=== PATIENT | female | born 1960 | race Caucasian/White ===

== ENCOUNTER 2016-11-05 17:53 | Emergency (ER) | payer MEDICAID ==
--- NOTE | 2016-11-05 19:06 | ER Document Report ---
ED Medical Screen (RME) - General Chief Complaint: Wound Infection Stated Complaint: LEFT FOOT PAIN TRAVEL OUTSIDE OF THE [place] IN LAST 30 DAYS: No - Related Data Allergies/Adverse Reactions: Penicillins Allergy (Unknown, Verified 11/05/16 18:01) Past Medical History - Social History Chew tobacco use (# tins/day): No Frequency of alcohol use: None Drug Abuse: None - Past Medical History Cardiac Medical History: Reports: Hx Coronary Artery Disease, Hx Heart Attack, Hx Hypercholesterolemia, Hx Hypertension Pulmonary Medical History: Reports: Hx Asthma, Hx COPD Denies: Hx Tuberculosis Neurological Medical History: Reports: Hx Migraine. 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 Denies: Hx Hysterectomy - Immunizations Immunizations up to date: Yes Hx Diphtheria, Pertussis, Tetanus Vaccination: Yes Physical Exam - Vital signs Vitals: Temp Pulse Resp BP Pulse Ox 98.7 F 90 16 171/100 H 97 11/05/16 18:01 11/05/16 18:01 11/05/16 18:01 11/05/16 18:01 11/05/16 18:01 Course - Vital Signs Vital signs: Temp Pulse Resp BP Pulse Ox 98.7 F 90 16 171/100 H 97 11/05/16 18:01 11/05/16 18:01 11/05/16 18:01 11/05/16 18:01 11/05/16 18:01
[2016-11-05] MEDS ORDERED: CEFTRIAXONE INJ 1000 MG VIAL IM ONE (19:08)
--- NOTE | 2016-11-05 19:08 | ER Document Report ---
ED Wound - General Mode of Arrival: Wheelchair Information source: Patient TRAVEL OUTSIDE OF THE [place] IN LAST 30 DAYS: No - HPI Patient complains to provider of: Wound infection Occurred: Other - see HPI note <SVITLANA HUSTON - Last Filed: 11/05/16 19:57> <CORNELL GRIMALDO - Last Filed: 11/08/16 03:06> - General Chief Complaint: Wound Infection Stated Complaint: LEFT FOOT PAIN Notes: Patient is a 56-year-old female. Patient's parents department for an infection in her right middle and fourth toe. Patient states that she noticed her ear infection about a week ago when she saw pus coming out of between her toe. Patient states that she is a diabetic and is insulin-dependent. Patient states that her blood glucose levels have been running 200s. Patient's last A1c was 9 or 10. Patient states that she is also very nauseous and has been vomiting. Patient also has a history of myocardial infarction 3 years ago, COPD, and is allergic to penicillin. (SVITLANA HUSTON) - Related Data Allergies/Adverse Reactions: Penicillins Allergy (Unknown, Verified 11/06/16 20:46) Past Medical History - General Information source: Patient - Social History Smoking Status: Never Smoker Cigarette use (# per day): No Chew tobacco use (# tins/day): No Frequency of alcohol use: None Drug Abuse: None Family History: DM, Hypertension Patient has suicidal ideation: No Patient has homicidal ideation: No - Past Medical History Cardiac Medical History: Reports: Hx Coronary Artery Disease, Hx Heart Attack, Hx Hypercholesterolemia, Hx Hypertension Pulmonary Medical History: Reports: Hx Asthma, Hx COPD Neurological Medical History: Reports: Hx Migraine Endocrine Medical History: Reports: 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 GI Medical History: Reports: Hx Gastroesophageal Reflux Disease Psychiatric Medical History: Reports: Hx Depression Past Surgical History: Reports: Hx Cardiac Catheterization - x7, Hx Section - x3, Hx Coronary Stent - 7 in [place]., Hx Tonsillectomy - Immunizations Immunizations up to date: Yes Hx Diphtheria, Pertussis, Tetanus Vaccination: Yes Hx Pneumococcal Vaccination: 05/01/13 <SVITLANA HUSTON - Last Filed: 11/05/16 19:57> Review of Systems - Review of Systems Constitutional: No symptoms reported EENT: No symptoms reported Cardiovascular: No symptoms reported Respiratory: No symptoms reported Gastrointestinal: No symptoms reported Genitourinary: No symptoms reported Female Genitourinary: No symptoms reported Musculoskeletal: No symptoms reported Skin: See HPI Hematologic/Lymphatic: No symptoms reported Neurological/Psychological: No symptoms reported -: Yes All other systems reviewed and negative <SVITLANA HUSTON - Last Filed: 11/05/16 19:57> Physical Exam - Vital signs Interpretation: Hypertensive - General General appearance: Appears well, Alert In distress: Mild - HEENT Head: Normocephalic, Atraumatic Eyes: Normal Pupils: PERRL Mucous membranes: Moist - Respiratory Respiratory status: No respiratory distress Chest status: Nontender Breath sounds: Normal Chest palpation: Normal - Cardiovascular Rhythm: Regular Heart sounds: Normal auscultation Murmur: No - Abdominal Inspection: Normal Distension: No distension Bowel sounds: Normal Tenderness: Nontender Organomegaly: No organomegaly - Back Back: Normal, Nontender - Extremities General upper extremity: Normal inspection, Normal ROM, Normal strength General lower extremity: Other - Neurological Neuro grossly intact: Yes Cognition: Normal Orientation: AAOx4 Emmanuel Coma Scale Eye Opening: Spontaneous Emmanuel Coma Scale Verbal: Oriented Emmanuel Coma Scale Motor: Obeys Commands [place] Coma Scale Total: 15 Speech: Normal - Psychological Associated symptoms: Normal affect, Normal mood - Skin Skin Temperature: Warm Skin Moisture: Dry <SVITLANA HUSTON - Last Filed: 11/05/16 19:57> <CORNELL GRIMALDO - Last Filed: 11/08/16 03:06> - Vital signs Vitals: Temp Pulse Resp BP Pulse Ox 98.7 F 90 16 171/100 H 97 11/05/16 18:01 11/05/16 18:01 11/05/16 18:01 11/05/16 18:01 11/05/16 18:01 - Extremities Notes: Right third digit to the lower extremity is macerated from getting wet with a bandage on it. Bandage is removed during exam for examination; There is some foul-smelling drainage in between the third and fourth toe; no cellulitis, crepitus, or necrosis. Pulses and sensation are intact, motor intact, no neurological deficits. No necrotizing fasciitis. (SVITLANA HUSTON) Course - Laboratory Result Diagrams: 11/05/16 19:25 11/05/16 19:25 <SVITLANA HUSTON - Last Filed: 11/05/16 19:57> - Laboratory Result Diagrams: 11/05/16 19:25 11/05/16 19:25 <CORNELL GRIMALDO - Last Filed: 11/08/16 03:06> - Re-evaluation Re-evalutation: 11/05/16 19:10 Patient presents to the emergency department with a chief complaint right middle toe infection: On for a week she no she is diabetic she thought starting but didn't see her doctor for it started on any antibiotics she is not seeing her current primary care physician trying to get another one out of most of her medications. Has a history of insulin-dependent diabetes with blood sugars running recently in the 200 range. She stepped out of her NovoLog as of today. 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 Blood pressures little elevated here today such took her blood pressure medication at home but unsure she's been compliant on that on a daily basis says she is out of most of her medications. Also takes pain medication for neuropathy and hasn't had that recently as well. On examination she is afebrile nontoxic lungs heart abdomen is clear no systemic complaints evaluation of the right third digit it's macerated from getting wet with a bandage on it. She's got a little bit of foul-smelling drainage in between the second and third toe no cellulitis crepitus or necrosis. Pulse sensation motor intact no neurological deficits. No necrotizing fasciitis. This time and ahead and start her on antibiotics laboratory evaluation x-ray to exclude osteomyelitis gave her some for pain. 11/05/16 20:24 Patient reassessed pain is better controlled x-ray shows soft tissue swelling but no osteomyelitis. Given 2 doses of IM antibiotics pain control. No cellulitis crepitus or necrosis and do a trial of outpatient antibiotic she's had a recheck in the ER in 12 hours for recheck and reevaluation if removing in the right direction Eduard overdo another dose of IM antibiotics if it's worsening prior to then we may need to admit her with IV antibiotics right now or going to trial recheck in 12 hours with oral antibiotics. Plan is to recheck in 12 hours follow-up with primary care physician on Tuesday. Patient and family instructed on what to return for sooner otherwise recheck in 12 hours in the emergency department. Patient has elevated blood glucose but is not in DKA has been noncompliant on her medications with uncontrolled hemoglobin A1c's. Plan gave her regular insulin here. 11/05/16 20:26 11/05/16 20:27 (CORNELL GRIMALDO) - Vital Signs Vital signs: Temp Pulse Resp BP Pulse Ox 98.9 F 55 L 16 147/84 H 99 11/05/16 20:30 11/05/16 20:30 11/05/16 20:30 11/05/16 20:30 11/05/16 20:30 - Laboratory Laboratory results interpreted by me: 11/05/16 19:25 Sodium 135.3 L Potassium 5.1 H Chloride 96 L BUN 26 H Glucose 406 H* Discharge <SVITLANA HUSTON - Last Filed: 11/05/16 19:57> <CORNELL GRIMALDO - Last Filed: 11/08/16 03:06> - Discharge Clinical Impression: acute diabetic wound infection Condition: Stable Disposition: HOME, SELF-CARE Additional Instructions: Diabetic wound infection You have an infection of your skin and underlying soft tissues called cellulitis. This is due to bacteria, which can enter through any break in the skin, or even through an irritated hair follicle. Untreated, cellulitis will usually worsen. Antibiotics are required. Usually, warm packs or warm soaks, and elevation of the infected area are recommended. You should start getting better within 24 to 36 hours. Most infections respond quickly to the right medication. Follow-up care is important, however, to check for abscess (boil) formation, unsuspected foreign body, or resistant infection. If you develop fever, chills, or if the area of infection is becoming rapidly more swollen or painful, call the doctor at once. Hyperglycemia (High Blood Sugar) You have an abnormally high blood sugar. Not all high blood sugar requires long-term treatment. High blood sugar can be due to medications, , or the stress of illness. (These cases are "borderline diabetes.") If the doctor feels your high blood sugar might resolve with time, you may not require treatment now. Recheck in the emergency department in 12 hours for reassessment reevaluation return sooner for increasing worsening or new symptoms Forms: Elevated Blood Pressure Scribe Attestation: 11/05/16 20:28 I personally performed the services described in the documentation reviewed the documentation recorded by the scribe in my presence and it accurately incompletely records my words and actions (CORNELL GRIMALDO) Scribe Documentation - Scribe Written by Scribasif:: Svitlana Huston 11/05/16 20:05 acting as scribe for :: Sean <SVITLANA HUSOTN - Last Filed: 11/05/16 19:57>
[2016-11-05] MEDS ORDERED: CLINDAMYCIN 900 MG/D5W RTU 50 ML IV ONE (19:09)
[2016-11-05] MEDS ORDERED: HYDROCODONE/ACETAMINOPHEN 5-325 MG TABLET PO ONE (19:09)
[2016-11-05 19:39] LABS: ABSOLUTE BASOPHILS # (AUTO) 0.1 10^3/uL (0.0-0.2); ABSOLUTE EOSINOPHILS # (AUTO) 0.1 10^3/uL (0.0-0.6); ABSOLUTE LYMPHOCYTES (AUTO) 2.5 10^3/uL (0.5-4.7); ABSOLUTE MONOCYTES (AUTO) 0.4 10^3/uL (0.1-1.4); ABSOLUTE NEUT (AUTO) 5.1 10^3/uL (1.7-8.2); BASOPHILS % (AUTO) 0.9 % (0-2); EOSINOPHILS % (AUTO) 1.2 % (0-6); HEMATOCRIT 37.2 % (36.0-47.0); HEMOGLOBIN 12.8 g/dL (12.0-15.5); HGB HCT DIFFERENCE 1.2; LYMPHOCYTES % (AUTO) 30.6 % (13-45); MEAN CORPUSCULAR HEMOGLOBIN 28.6 pg (27.0-33.4); MEAN CORPUSCULAR HGB CONC 34.4 g/dL (32.0-36.0); MEAN CORPUSCULAR VOLUME 83 fl (80-97); MONOCYTES % (AUTO) 4.4 % (3-13); RED BLOOD COUNT 4.46 10^6/uL (3.72-5.28); RED CELL DISTRIBUTION WIDTH 12.9 % (11.5-14.0); SEGMENTED NEUTROPHILS % (AUTO) 62.9 % (42-78); WHITE BLOOD COUNT 8.1 10^3/uL (4.0-10.5)
[2016-11-05] MEDS ORDERED: LIDOCAINE 1% INJ-PF (10 MG/ML) 30 ML SDV ONE (20:13)
[2016-11-05 20:16] LABS: ANION GAP 12 (5-19); BLOOD UREA NITROGEN 26 mg/dL (7-20); CARBON DIOXIDE 27 mmol/L (22-30); CHLORIDE 96 mmol/L (98-107); CREATININE RESULT 0.96 mg/dL (0.52-1.25); POTASSIUM 5.1 mmol/L (3.6-5.0); SODIUM 135.3 mmol/L (137-145)
[2016-11-05] MEDS ORDERED: CLINDAMYCIN PHOSPHATE INJ 300 MG/2 ML SDV IM ONE (20:23)
[2016-11-05 20:26] LABS: GLUCOSE 406 mg/dL (75-110)
[2016-11-05] MEDS ORDERED: HYDROCODONE/ACETAMINOPHEN 5-325 MG 6 TAB/DSPK PO PRN (20:29)
[2016-11-05] MEDS ORDERED: INSULIN REG, HUMAN 100 UNIT/ML 3 ML VIAL (PYX) SUBCUT ONE (20:29)
[2016-11-05 21:06] VITALS: BP 147/84
== END 2016-11-05 20:33 | disposition home or self-care (01) ==
LOC: ER 17:53
DX: E11.628 Type 2 diabetes mellitus with other skin complications (principal); L08.9 Local infection of the skin and subcutaneous tissue, unspecified; E11.40 Type 2 diabetes mellitus with diabetic neuropathy, unspecified; Z79.4 Long term (current) use of insulin; R11.2 Nausea with vomiting, unspecified; I25.10 Atherosclerotic heart disease of native coronary artery without angina pectoris; I25.2 Old myocardial infarction; I10 Essential (primary) hypertension; Z91.14 Patient's other noncompliance with medication regimen; J44.9 Chronic obstructive pulmonary disease, unspecified; Z88.0 Allergy status to penicillin; Z98.61 Coronary angioplasty status; Z79.899 Other long term (current) drug therapy
CPT/HCPCS: 99283; 96372; 36415; 87040; 85025; 80048; 73630; J0696

== ENCOUNTER 2016-11-06 20:09 | Inpatient (IN) | payer MEDICAID ==
[2016-11-06] MEDS ORDERED: VANCOMYCIN HCL INJ 1000 MG VIAL IV ONE (22:27)
[2016-11-06] MEDS ORDERED: FENTANYL CITRATE INJ/PF 100 MCG/2 ML AMPUL IV ONE (22:34)
[2016-11-06] MEDS ORDERED: CIPROFLOXACIN 400 MG/D5W RTU 400 MG/200 ML RTUPB IV ONE (23:00)
[2016-11-06] MEDS ORDERED: CIPROFLOXACIN 400 MG/D5W RTU 200 ML IV SCH (23:00)
[2016-11-07] MEDS ORDERED: INSULIN REG, HUMAN 100 UNIT/ML 3 ML VIAL (PYX) SUBCUT ONE ×2 (00:12→00:13)
[2016-11-07 01:53] LABS: ABSOLUTE EOSINOPHILS # (AUTO) 0.2 10^3/uL (0.0-0.6); ABSOLUTE LYMPHOCYTES (AUTO) 3.9 10^3/uL (0.5-4.7); ABSOLUTE MONOCYTES (AUTO) 0.6 10^3/uL (0.1-1.4); ABSOLUTE NEUT (AUTO) 4.8 10^3/uL (1.7-8.2); BASOPHILS % (AUTO) 0.5 % (0-2); EOSINOPHILS % (AUTO) 1.9 % (0-6); HEMATOCRIT 37.2 % (36.0-47.0); HEMOGLOBIN 12.6 g/dL (12.0-15.5); HGB HCT DIFFERENCE 0.6; LYMPHOCYTES % (AUTO) 40.9 % (13-45); MEAN CORPUSCULAR HEMOGLOBIN 28.3 pg (27.0-33.4); MEAN CORPUSCULAR VOLUME 83 fl (80-97); MONOCYTES % (AUTO) 6.1 % (3-13); RED BLOOD COUNT 4.47 10^6/uL (3.72-5.28); SEGMENTED NEUTROPHILS % (AUTO) 50.6 % (42-78); WHITE BLOOD COUNT 9.4 10^3/uL (4.0-10.5)
[2016-11-07 02:09] LABS: ANION GAP 10 (5-19); BLOOD UREA NITROGEN 27 mg/dL (7-20); CALCIUM 9.5 mg/dL (8.4-10.2); CARBON DIOXIDE 29 mmol/L (22-30); CHLORIDE 101 mmol/L (98-107); CREATININE RESULT 0.77 mg/dL (0.52-1.25); GLUCOSE 164 mg/dL (75-110); POTASSIUM 4.4 mmol/L (3.6-5.0); SODIUM 140.2 mmol/L (137-145)
[2016-11-07] MEDS ORDERED: ACETAMINOPHEN 325 MG TABLET PO PRN (02:45)
[2016-11-07] MEDS ORDERED: VANCOMYCIN HCL 1,000 MG in DEXTROSE 5%-WATER 250 ML IV ONE (02:45)
[2016-11-07] MEDS ORDERED: VANCOMYCIN HCL 0 MG in DEXTROSE 5%-WATER 250 ML IV NR (02:45)
[2016-11-07] MEDS ORDERED: VANCOMYCIN HCL INJ 1000 MG VIAL IV ONE (02:45)
[2016-11-07] MEDS ORDERED: GLUCAGON,HUMAN RECOMB 1 MG INJ IM PRN (02:45)
[2016-11-07] MEDS ORDERED: DEXTROSE 40% GEL 15 GM TUBE PO PRN ×2 (02:45)
[2016-11-07] MEDS ORDERED: FENTANYL CITRATE INJ/PF 100 MCG/2 ML AMPUL IV ONE (02:45)
[2016-11-07] MEDS ORDERED: MAGNESIUM HYDROXIDE SUSP 30 ML UDCUP PO PRN (02:45)
[2016-11-07] MEDS ORDERED: IPRATROPIUM/ALBUTEROL 0.5-2.5 MG/3 ML AMPUL NEB PRN (02:45)
[2016-11-07] MEDS ORDERED: ONDANSETRON HCL INJ/PF 4 MG/2 ML SDV IV PRN (02:45)
[2016-11-07] MEDS ORDERED: MAG HYDROX/AL HYDROX/SIMETH SUSP 30 ML UDCUP PO PRN (02:45)
[2016-11-07] MEDS ORDERED: DEXTROSE 50%-WATER 25 GM/50 ML DISP.SYRIN IV PRN ×2 (02:45)
--- NOTE | 2016-11-07 02:53 | ER Document Report ---
ED General - General Chief Complaint: Wound Recheck Stated Complaint: WOUND RECHECK Notes: Patient is a 56-year-old female who presents with complaint of pain and redness infection the middle toe her left foot. She was seen here yesterday. She is placed on clindamycin. She was encouraged come back within 12-24 hours reevaluation. Patient is coming back now. She says that the swelling is now spread to her foot and toes got worse. She is diabetic. She does admit to not take your insulin tonight. She says that she is mostly compliant with her medications. She says she is between physicians at this time. TRAVEL OUTSIDE OF THE [place] IN LAST 30 DAYS: No - Related Data Allergies/Adverse Reactions: Penicillins Allergy (Unknown, Verified 11/06/16 20:46) Past Medical History - Social History Smoking Status: Never Smoker Chew tobacco use (# tins/day): No Frequency of alcohol use: None Drug Abuse: None Family History: DM, Hypertension Patient has suicidal ideation: No Patient has homicidal ideation: No - Past Medical History Cardiac Medical History: Reports: Hx Coronary Artery Disease, Hx Heart Attack, Hx Hypercholesterolemia, Hx Hypertension Pulmonary Medical History: Reports: Hx Asthma, Hx COPD Denies: Hx Tuberculosis Neurological Medical History: Reports: Hx Migraine. 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 Denies: Hx Hysterectomy - Immunizations Immunizations up to date: Yes Hx Diphtheria, Pertussis, Tetanus Vaccination: Yes Hx Pneumococcal Vaccination: 05/01/13 Review of Systems - Review of Systems Notes: My Normal Review Basic REVIEW OF SYSTEMS: CONSTITUTIONAL : Denies fever, chills, or sweats. Denies recent illness. RESPIRATORY: Denies cough, cold, or chest congestion. Denies shortness of breath, difficulty breathing, or wheezing. GASTROINTESTINAL: Denies abdominal pain. Denies nausea, vomiting, or diarrhea. Denies constipation. Last BM: : MUSCULOSKELETAL: Pain in left foot and toe. SKIN: Erythema and swelling to left third toe. NEUROLOGICAL: Denies altered mental status or loss of consciousness. Denies headache. Denies weakness or paralysis or loss of use of either side. Denies problems with gait or speech. Denies sensory or motor loss. ALL OTHER SYSTEMS REVIEWED AND NEGATIVE. Physical Exam - Vital signs Vitals: Temp Pulse Resp BP Pulse Ox 98.0 F 85 20 167/100 H 97 11/06/16 20:46 11/06/16 20:46 11/06/16 20:46 11/06/16 20:46 11/06/16 20:46 - Notes Notes: General Appearance: Well nourished, alert, cooperative, no acute distress, no obvious discomfort. Vitals: reviewed, See vital signs table. Eyes: PERRL, EOMI, Conjuctiva clear Mouth: No decreasd moisture Lungs: No wheezing, No rales, No rhonci, No accessory muscle use, good air exchange bilaterally. Heart: Normal rate, Regular rythm, No murmur, no rub Extremities: strength 5/5 in all extremities, good pulses in all extremities, patient has erythema and ulceration to the left third toe with necrosis and some foul-smelling purulent drainage. Patient has swelling going into the distal foot. Some erythema starting to extend into the distal foot. No edema. Skin: warm, dry, appropriate color, no rash Neuro: speech clear, oriented x 3, normal affect, responds appropriately to questions. Course - Vital Signs Vital signs: Temp Pulse Resp BP Pulse Ox 98.0 F 85 20 167/100 H 97 11/06/16 20:46 11/06/16 20:46 11/06/16 20:46 11/06/16 20:46 11/06/16 20:46 - Laboratory Result Diagrams: 11/07/16 01:35 11/07/16 01:35 Laboratory results interpreted by me: 11/06/16 11/07/16 11/07/16 23:43 01:35 01:35 BUN 27 H Glucose 164 H POC Glucose 197 H Hemoglobin A1c % 12.6 H - Transfer of Care Notes: 11/07/16 04:34 Patient has worsening infection of the toe now spreading into the foot. She is diabetic. I have placed on Cipro and vancomycin. I spoke with the hospitalist who agrees to the patient for further treatment and management of her infection. Dictation of this chart was performed using voice recognition software; therefore, there may be some unintended grammatical errors. Discharge - Discharge Clinical Impression: Diabetic foot infection Condition: Good Disposition: ADMITTED INPATIENT Admitting Provider: Hospitalist Unit Admitted: Medical Floor
--- NOTE | 2016-11-07 04:54 | PDOC H&P ---
History of Present Illness Admission Date/PCP: 11/07/16 03:04 Patient complains of: Right Third toe infection History of Present Illness: CAITLYN DUARTE is a 56 year old female with a past medical history of hypertension, coronary artery disease with stents and diabetes who is had approximately 1 week of erythema swelling and malodorous risk discharge from her right third toe for which she initially applied a topical core microarchitect preparation resulting in some improvement then following up with the emergency room yesterday and was started on clindamycin without significant improvement she returns with malodorous drainage and necrotic discharge from the base of the right third toe and distal foot erythema and edema. In the emergency room she started on vancomycin and ciprofloxacin and referred to the hospitalist for admission. Patient denies previous episode she admits compliance with diabetic regiment. She denies fever chills palpitations or shortness of breath Past Medical History Cardiac Medical History: Reports: Coronary Artery Disease, Myocardial Infarction , Hyperlipidema, Hypertension Pulmonary Medical History: Reports: Asthma, Chronic Obstructive Pulmonary Disease (COPD) Denies: Tuberculosis Neurological Medical History: Reports: Migraine Denies: Seizures Endocrine Medical History: Reports: Diabetes Mellitus Type 1, Diabetes Mellitus Type 2 - Insulin dependant GI Medical History: Reports: Gastroesophageal Reflux Disease Psychiatric Medical History: Reports: Depression Past Surgical History Past Surgical History: Reports: Cardiac Catheterization - x7, Section - x3, Coronary Stent - 7 in [place]., Tonsillectomy Denies: Hysterectomy Social History Information Source: Patient Lives with: Family Smoking Status: Never Smoker Frequency of Alcohol Use: None Hx Recreational Drug Use: No Hx Prescription Drug Abuse: No - Advance Directive Resuscitation Status: Full Code Family History Family History: DM, Hypertension Parental Family History Reviewed: Yes Children Family History Reviewed: Yes Sibling(s) Family History Reviewed.: Yes Medication/Allergy Home Medications: Atorvastatin Calcium [Lipitor 40 mg Tablet] 40 mg PO QHS 04/29/13 Duloxetine HCl [Cymbalta 30 mg Capsule.dr] 30 mg PO DAILY 04/29/13 Gabapentin [Neurontin 300 Mg Capsule] 600 mg PO TID 04/29/13 Insulin Aspart Protam & Aspart [Novolog Mix 70-30 Vial] 6 unit SQ ACLUNCH Insulin Glargine,Hum.rec.anlog [Lantus Insulin 100 Unit/mL] 45 unit SUBCUT QAM 04/29/13 Metformin HCl [Glucophage 500 mg Tablet] 1,000 mg PO BID 04/29/13 Omeprazole [Prilosec 40 mg Capsule] 20 mg PO DAILY 04/29/13 Aspirin [Aspirin 81 mg Chewable Tablet] 81 mg PO DAILY #0 tab.chew 05/01/13 Clopidogrel Bisulfate [Plavix] 75 mg PO DAILY 06/26/14 Lisinopril 5 mg PO DAILY 06/26/14 Lorazepam 0.25 mg PO PRN PRN 06/26/14 Metoprolol Succinate [Toprol Xl] 12.5 mg PO DAILY 06/26/14 [place]-3 Fatty Acids [[place]-3] 1,000 mg PO DAILY 06/26/14 Ciprofloxacin HCl [Cipro 500 mg Tablet] 500 mg PO BID #10 tablet 05/05/15 Ciprofloxacin HCl [Cipro 500 mg Tablet] 500 mg PO BID #14 tablet 08/30/15 Doxycycline Hyclate 100 mg PO BID #14 capsule 08/30/15 Hydrocodone/Acetaminophen [[place] 5-325 mg Tablet] 1 tab PO Q4 PRN #16 tablet Ofloxacin [Floxin 0.3% Otic Drops 5 ml] 1 drop OT ASDIR PRN #1 bottle 10/31/15 Ondansetron [Zofran Odt 4 mg Tablet] 1 tab PO Q6HP PRN #15 tab.rapdis 01/02/16 Clindamycin HCl 300 mg PO BID #14 capsule 11/05/16 Allergies/Adverse Reactions: Penicillins Allergy (Unknown, Verified 11/06/16 20:46) Review of Systems Constitutional: ABSENT: chills, fever(s), headache(s), weight gain, weight loss Eyes: ABSENT: visual disturbances Ears: ABSENT: hearing changes Cardiovascular: ABSENT: chest pain, dyspnea on exertion, edema, orthropnea, palpitations Respiratory: ABSENT: cough, hemoptysis Gastrointestinal: ABSENT: abdominal pain, constipation, diarrhea, hematemesis, hematochezia, nausea, vomiting Genitourinary: ABSENT: dysuria, hematuria Musculoskeletal: ABSENT: joint swelling Integumentary: ABSENT: rash, wounds Neurological: ABSENT: abnormal gait, abnormal speech, confusion, dizziness, focal weakness, syncope Psychiatric: ABSENT: anxiety, depression, homidical ideation, suicidal ideation Endocrine: ABSENT: cold intolerance, heat intolerance, polydipsia, polyuria Hematologic/Lymphatic: ABSENT: easy bleeding, easy bruising Physical Exam Vital Signs: Temp Pulse Resp BP Pulse Ox 98.0 F 85 20 167/100 H 97 11/06/16 20:46 11/06/16 20:46 11/06/16 20:46 11/06/16 20:46 11/06/16 20:46 General appearance: PRESENT: no acute distress, well-developed, well-nourished Head exam: PRESENT: atraumatic, normocephalic Eye exam: PRESENT: conjunctiva pink, EOMI, PERRLA. ABSENT: scleral icterus Ear exam: PRESENT: normal external ear exam Mouth exam: PRESENT: moist, tongue midline Neck exam: ABSENT: carotid bruit, JVD, lymphadenopathy, thyromegaly Respiratory exam: PRESENT: clear to auscultation lito. ABSENT: rales, rhonchi, wheezes Cardiovascular exam: PRESENT: RRR. ABSENT: diastolic murmur, rubs, systolic murmur Pulses: PRESENT: normal dorsalis pedis pul Vascular exam: PRESENT: normal capillary refill GI/Abdominal exam: PRESENT: normal bowel sounds, soft. ABSENT: distended, guarding, mass, organolmegaly, rebound, tenderness Rectal exam: PRESENT: deferred Extremities exam: PRESENT: full ROM, joint swelling, pedal edema, tenderness, + 1 edema, other - Right distal foot edema and erythema with necrotic malodorous discharge from third toe. ABSENT: calf tenderness, clubbing Neurological exam: PRESENT: alert, awake, oriented to person, oriented to place , oriented to time, oriented to situation, CN II-XII grossly intact. ABSENT: motor sensory deficit Psychiatric exam: PRESENT: appropriate affect, normal mood. ABSENT: homicidal ideation, suicidal ideation Skin exam: PRESENT: dry, intact, warm. ABSENT: cyanosis, rash Assessment & Plan - Diagnosis (1) Diabetic foot infection Is this a current diagnosis for this admission?: YesPlan: Empiric antibiotics for coverage of MRSA and Pseudomonas with IV vancomycin and cefepime following up blood cultures and CBC will obtain surgical consult for viability (2) Diabetes 1.5, managed as type 1 Is this a current diagnosis for this admission?: YesPlan: Continue long-acting insulin and Humalog with meals, obtain an A1c consider education - Time Time Spent: 30 to 50 Minutes
[2016-11-07] MEDS: HEPARIN SOD (PORCINE) 5,000 UNIT/ML 1 ML SYRINGE SUBCUT SCH ×3 (06:10→21:14)
[2016-11-07] MEDS ORDERED: CEFEPIME 1 GM/D5W RTU 1 GM/50 ML RTUPB IV ONE (06:13)
[2016-11-07] MEDS: CEFEPIME 1 GM/D5W RTU 1 GM/50 ML RTUPB IV SCH ×2 (09:36→18:11)
[2016-11-07] MEDS: INSULIN GLARGINE,HUM.REC.ANLOG 300 UNIT/3 ML INSULN.PEN SUBCUT SCH (09:37)
[2016-11-07] MEDS: METFORMIN HCL 500 MG TABLET PO SCH ×2 (09:40→16:41)
[2016-11-07] MEDS: LANSOPRAZOLE 15 MG TAB.RAP.DR PO SCH (09:40)
[2016-11-07] MEDS ORDERED: LISINOPRIL 5 MG TABLET PO SCH (10:00)
[2016-11-07] MEDS ORDERED: METOPROLOL SUCCINATE 25 MG TAB.SR.24H PO SCH (10:00)
[2016-11-07] MEDS ORDERED: OMEPRAZOLE 20 MG PO SCH (10:00)
[2016-11-07] MEDS ORDERED: CLOPIDOGREL BISULFATE 75 MG TABLET PO SCH (10:00)
[2016-11-07] MEDS ORDERED: CIPROFLOXACIN 400 MG/D5W RTU 400 MG/200 ML RTUPB IV SCH (10:00)
[2016-11-07] MEDS ORDERED: LORAZEPAM 0.5 MG TABLET PO PRN ×2 (10:56→11:03)
[2016-11-07] MEDS ORDERED: ONDANSETRON 4 MG TAB.RAPDIS PO PRN (10:56)
[2016-11-07] MEDS ORDERED: [UNRECOGNIZED DRUG - OTHER] SQ SCH (11:00)
[2016-11-07] MEDS ORDERED: INSULIN ASPART PROTAMINE SQ SCH (11:00)
[2016-11-07] MEDS: DULOXETINE HCL 30 MG CAPSULE.DR PO SCH (11:04)
[2016-11-07] MEDS: GABAPENTIN 300 MG CAPSULE PO SCH ×3 (11:04→17:35)
[2016-11-07] MEDS: ASPIRIN 81 MG TABLET, CHEWABLE PO SCH (11:04)
[2016-11-07] MEDS: DOCUSATE SODIUM 100 MG CAPSULE PO SCH ×2 (11:04→17:35)
--- NOTE | 2016-11-07 13:18 | PDOC PROGRESS REPORT ---
Subjective Progress Note for:: 11/07/16 Subjective:: Patient seen on morning rounds. She is resting in bed comfortably. She is complaining of some pain in the right third toe. There is darkened area on the lateral side of the toe with foul smelling discharge. Patient states surgeon was in to see her earlier. She states she is adamantly not going to have her toe removed. We discussed risks of osteomyelitis and gangrene. She denies any shortness of breath, chest pain or dyspnea. She denies nausea, abdominal pain or diarrhea. Rest of review of systems are negative Physical Exam Vital Signs: Temp Pulse Resp BP Pulse Ox 98.6 F 77 16 117/76 97 11/07/16 08:13 11/07/16 08:13 11/07/16 08:13 11/07/16 08:13 11/06/16 20:46 General appearance: PRESENT: no acute distress, obese, well-developed, well- nourished Head exam: PRESENT: atraumatic, normocephalic Eye exam: PRESENT: conjunctiva pink, EOMI, PERRLA. ABSENT: scleral icterus Ear exam: PRESENT: normal external ear exam Mouth exam: PRESENT: moist, tongue midline Neck exam: ABSENT: carotid bruit, JVD, lymphadenopathy, thyromegaly Respiratory exam: PRESENT: clear to auscultation lito. ABSENT: rales, rhonchi, wheezes Cardiovascular exam: PRESENT: RRR. ABSENT: diastolic murmur, rubs, systolic murmur Pulses: PRESENT: normal carotid pulses, normal radial pulses Vascular exam: PRESENT: normal capillary refill GI/Abdominal exam: PRESENT: normal bowel sounds, soft. ABSENT: distended, guarding, mass, organolmegaly, rebound, tenderness Rectal exam: PRESENT: deferred Extremities exam: PRESENT: full ROM. ABSENT: calf tenderness, clubbing, pedal edema Neurological exam: PRESENT: alert, awake, oriented to person, oriented to place , oriented to time, oriented to situation, CN II-XII grossly intact. ABSENT: motor sensory deficit Psychiatric exam: PRESENT: appropriate affect, normal mood. ABSENT: homicidal ideation, suicidal ideation Skin exam: PRESENT: dry, intact, warm, other - right third toe erythemic, with darkened eschar on lateral toe with foul smelling drainage. ABSENT: cyanosis, rash Assessment & Plan - Diagnosis (1) Diabetic foot infection Is this a current diagnosis for this admission?: YesPlan: Patient on IV broad-spectrum antibiotics. Blood cultures and wound cultures are pending. Surgical service following for wound management. Patient is adamant she did not have her toe removed. (2) Diabetes 1.5, managed as type 1 Is this a current diagnosis for this admission?: YesPlan: Patient's HbA1c is 12.5 today. Discussed need for improved management of her diabetes with patient. She states she is compliant most of the time with her insulin. She is improving her diet as well. She is agreeable to follow-up with endocrinology as an outpatient. (3) Peripheral vascular disease Is this a current diagnosis for this admission?: YesPlan: Obtain ABIs tomorrow to assess arterial flow to the foot. (4) Coronary artery disease Qualifiers: Coronary Disease-Associated Artery/Lesion type: [place] artery Is this a current diagnosis for this admission?: YesPlan: Continue medications (5) Dyslipidemia Is this a current diagnosis for this admission?: YesPlan: Continue statin (6) Noncompliance Is this a current diagnosis for this admission?: YesPlan: Discuss need for improved management of her diabetes mellitus type II - Time Time Spent with patient: 25-34 minutes Critical Time spent with patient: 15-24 minutes Medications reviewed and adjusted accordingly: Yes Anticipated discharge: Home
[2016-11-07] MEDS ORDERED: SILVER SULFADIAZINE 1% CREAM 25 GM TP PRN (13:43)
[2016-11-07] MEDS: VANCOMYCIN HCL 1,000 MG in DEXTROSE 5%-WATER 250 ML IV SCH (15:53)
--- NOTE | 2016-11-07 16:19 | CONSULTATION REPORT E ---
Consultation Report NAME: CAITLYN DUARTE : 1960 AGE: 56Y DATE: 208 A TO: MECHE NAIDU M.D. FROM: JOYCE MOJICA M.D. Requesting Physician REASON FOR CONSULTATION: Patient with infected right 3rd toe with drainage. HISTORY OF PRESENT ILLNESS: This is a 56-year-old female who claimed she dropped a knife on her right 3rd toe about a week ago. This gradually got red and painful, and now with malodorous drainage. She was admitted to the emergency room early this morning. PAST HISTORY: Coronary artery disease, myocardial infarction, hyperlipidemia, hypertension. Pulmonary history: History of asthma, COPD, and history of migraines. Endocrine history: History of diabetes mellitus type 1 and diabetes mellitus type 2 insulin-dependent. GI: Reports gastroesophageal reflux disease. Psychiatric medical history: Reports depression. PAST SURGICAL HISTORY: 1. Cardiac catheterization x7 with coronary stent placement, about 7 of them, 7 years ago after her myocardial infarction. 2. Tonsillectomy. SOCIAL HISTORY: She never smoked. Never used alcohol. No recreational drug use. FAMILY HISTORY: Positive for diabetes. Her father had diabetes and had a wound in his left foot which the patient helped treat with "silver" medication and this resolved the infection, and her father is a diabetic. MEDICATION HISTORY: 1. Insulin. 2. Lisinopril. 3. Metoprolol. 4. Atorvastatin. 5. Neurontin. 6. Also takes *------*. 7. She apparently was placed on Cipro and doxycycline by primary physician. ALLERGIES: PENICILLIN. REVIEW OF SYSTEMS: GENERAL: Denies any chills, fever, headache. EYES: Denies visual disturbance. EARS: No hearing changes. CARDIAC: No chest pain, no dyspnea on exertion, no orthopnea, no palpitations. RESPIRATORY: No cough or hemoptysis. GASTROINTESTINAL: No abdominal pains, constipation, diarrhea, or hematochezia. GENITOURINARY: No dysuria or hematuria. MUSCULOSKELETAL: No joint swelling. NEUROLOGICAL: No speech *------*. No focal weakness. PSYCHIATRIC: No anxiety or depression. ENDOCRINE: No cold intolerance. HEMATOLOGIC/LYMPHATIC: No easy bleeding or easy bruising. PHYSICAL EXAM: GENERAL: This is a 56-year-old female, alert and oriented, complaining of pains in the right foot. General appearance: Well-developed, well-nourished, complaining of leg neck pain, see H and P. VITAL SIGNS: Temperature 98 degrees, pulse rate 85, respiratory rate 20 and blood pressure 167/100, pulse ox 97% on room air. HEENT: Atraumatic/normocephalic. Eye exam: PERRLA. Conjunctivae pink. Ear exam: Normal external ear exam. Mouth exam: Moist. Tongue midline. NECK: No carotid bruit, no thyromegaly. RESPIRATORY: Clear to auscultation bilaterally. VASCULAR EXAM: Pulses palpable along the right popliteal, right ankle dorsalis pedis, and posterior tibial arteries. Right 3rd toe is erythematous with good capillary refill. There is foul-smelling discharge along the base of the right 3rd toe. There appear to be ischemic changes on the plantar aspect of the 1st metatarsal, right 3rd toe. No definite abscess around the area, but the plantar side is very tender when you touch it. LABORATORY DATA: The Blood sugar is slightly elevated. IMPRESSION: 1. Infected right 3rd toe with tissue loss. 2. Insulin-dependent diabetes mellitus. PLANS: Initially, I spoke with the patient about amputation of the right 3rd toe, but she refused at this time. I explained to her the risks of not having the amputation of the toe, and one of them is possibility of endangering losing the whole foot. She understands. At any rate, we would start her on Silvadene dressing which I agree, she did request, based on the treatment of her father's foot. Will keep the leg elevated and continue with IV antibiotics. DICTATING PHYSICIAN: MECHE NAIDU M.D. [id number] PHY#: [id number] ID: [id number] JOB#: [id number] ACCT: [id number] cc:MECHE NAIDU M.D. >
[2016-11-07] MEDS: TICAGRELOR 90 MG TABLET PO SCH (17:35)
[2016-11-07] MEDS: INSULIN LISPRO 100 UNIT/ML 3 ML VIAL SUBCUT PRN ×2 (18:11→23:48)
[2016-11-07] MEDS: ATORVASTATIN CALCIUM 40 MG TABLET PO SCH (21:14)
[2016-11-08] MEDS: VANCOMYCIN HCL 1,000 MG in DEXTROSE 5%-WATER 250 ML IV SCH ×2 (03:50→17:03)
[2016-11-08] MEDS: CEFEPIME 1 GM/D5W RTU 1 GM/50 ML RTUPB IV SCH (05:51)
[2016-11-08] MEDS: HEPARIN SOD (PORCINE) 5,000 UNIT/ML 1 ML SYRINGE SUBCUT SCH ×3 (05:51→22:12)
[2016-11-08 06:51] LABS: ABSOLUTE EOSINOPHILS # (AUTO) 0.1 10^3/uL (0.0-0.6); ABSOLUTE LYMPHOCYTES (AUTO) 3.5 10^3/uL (0.5-4.7); ABSOLUTE MONOCYTES (AUTO) 0.5 10^3/uL (0.1-1.4); ABSOLUTE NEUT (AUTO) 3.7 10^3/uL (1.7-8.2); BASOPHILS % (AUTO) 0.6 % (0-2); EOSINOPHILS % (AUTO) 1.5 % (0-6); HEMATOCRIT 34.1 % (36.0-47.0); HEMOGLOBIN 11.9 g/dL (12.0-15.5); HGB HCT DIFFERENCE 1.6; LYMPHOCYTES % (AUTO) 43.9 % (13-45); MEAN CORPUSCULAR HEMOGLOBIN 28.9 pg (27.0-33.4); MEAN CORPUSCULAR HGB CONC 34.8 g/dL (32.0-36.0); MEAN CORPUSCULAR VOLUME 83 fl (80-97); MONOCYTES % (AUTO) 6.5 % (3-13); RED CELL DISTRIBUTION WIDTH 12.8 % (11.5-14.0); SEGMENTED NEUTROPHILS % (AUTO) 47.5 % (42-78); WHITE BLOOD COUNT 7.9 10^3/uL (4.0-10.5)
[2016-11-08 07:11] LABS: ANION GAP 9 (5-19); BLOOD UREA NITROGEN 36 mg/dL (7-20); CALCIUM 9.1 mg/dL (8.4-10.2); CARBON DIOXIDE 26 mmol/L (22-30); CHLORIDE 99 mmol/L (98-107); CREATININE RESULT 0.99 mg/dL (0.52-1.25); GLUCOSE 364 mg/dL (75-110); POTASSIUM 4.5 mmol/L (3.6-5.0); SODIUM 133.8 mmol/L (137-145)
[2016-11-08] MEDS: INSULIN GLARGINE,HUM.REC.ANLOG 300 UNIT/3 ML INSULN.PEN SUBCUT SCH (07:55)
[2016-11-08] MEDS: LANSOPRAZOLE 15 MG TAB.RAP.DR PO SCH (07:56)
[2016-11-08] MEDS: METFORMIN HCL 500 MG TABLET PO SCH ×2 (07:56→17:04)
[2016-11-08] MEDS ORDERED: (PENDING PHARMACY ID) (Insulin Aspart [Novolog Flexpen] 6 UNIT) SUBCUT SCH (08:00)
[2016-11-08] MEDS ORDERED: ACETAMINOPHEN 325 MG TABLET PO PRN (08:10)
[2016-11-08] MEDS: INSULIN LISPRO 100 UNIT/ML 3 ML VIAL SUBCUT SCH ×3 (08:50→17:11)
[2016-11-08] MEDS: GABAPENTIN 300 MG CAPSULE PO SCH ×3 (10:21→17:04)
[2016-11-08] MEDS: TICAGRELOR 90 MG TABLET PO SCH ×2 (10:21→17:05)
[2016-11-08] MEDS: ASPIRIN 81 MG TABLET, CHEWABLE PO SCH (10:21)
[2016-11-08] MEDS: DOCUSATE SODIUM 100 MG CAPSULE PO SCH ×2 (10:22→17:05)
[2016-11-08] MEDS: CARVEDILOL 3.125 MG TABLET PO SCH ×2 (10:22→22:12)
[2016-11-08] MEDS: DULOXETINE HCL 30 MG CAPSULE.DR PO SCH (11:07)
[2016-11-08] MEDS: INSULIN LISPRO 100 UNIT/ML 3 ML VIAL SUBCUT PRN ×2 (12:15→17:12)
[2016-11-08] MEDS: SILVER SULFADIAZINE 1% CREAM 25 GM TP SCH (13:16)
--- NOTE | 2016-11-08 15:09 | PROGRESS NOTE E ---
Progress Note NAME: CAITLYN DUARTE : 1960 AGE: 56Y DATE: 11/08/2016 ROOM: 208 SUBJECTIVE: The patient presents with an injury to the right foot, third digit. She was admitted to the hospital and placed on IV antibiotics along with local wound care. It is recommended that the patient undergo amputation of this infection gangrenous third digit. The patient had refused. She is not complaining of any pain in the foot at the current time. OBJECTIVE: The patient has foul smelling right foot, third digit. She has wet gangrene being present on the plantar surface. She does have dorsal pedis pulse. ASSESSMENT: Infected with wet gangrene, right foot, third digit. There does not appear to be any spreading of the infection in the forefoot. The patient, based on anecdotal evidence of her father having an infected toe with it improving with topical therapy, would like to continue to try to see if her foot will improve with this treatment. I have stated that she has gangrene present and that this would not be helpful at all. She still wants to try for another day or two with IV antibiotics and local wound care. I advised against this as she may have worsening infection going into her forefoot. She understands the risks and still does not want to have any surgery. Surgery would involved doing a guillotine amputation, cleaning up the infection and going back for a revision. PLAN: The patient would like to continue for another 2 days of local wound care to see if this will improve her situation. DICTATING PHYSICIAN: SHARATH RINCON M.D. [id number] PHY#: [id number] ID: [id number] JOB#: [id number] ACCT: [id number] cc: >
[2016-11-08 16:21] LABS: CREATININE RESULT 0.79 mg/dL (0.52-1.25)
[2016-11-08] MEDS: ATORVASTATIN CALCIUM 40 MG TABLET PO SCH (22:12)
[2016-11-09] MEDS: INSULIN LISPRO 100 UNIT/ML 3 ML VIAL SUBCUT PRN ×2 (01:01→23:20)
[2016-11-09] MEDS: CEFEPIME 1 GM/D5W RTU 1 GM/50 ML RTUPB IV SCH ×3 (02:43→22:29)
[2016-11-09] MEDS: VANCOMYCIN HCL 1,000 MG in DEXTROSE 5%-WATER 250 ML IV SCH ×2 (03:15→16:21)
[2016-11-09] MEDS: HEPARIN SOD (PORCINE) 5,000 UNIT/ML 1 ML SYRINGE SUBCUT SCH ×3 (05:43→22:26)
[2016-11-09] MEDS: SILVER SULFADIAZINE 1% CREAM 25 GM TP SCH ×3 (05:46→18:37)
[2016-11-09 06:40] LABS: ABSOLUTE BASOPHILS # (AUTO) 0.1 10^3/uL (0.0-0.2); ABSOLUTE EOSINOPHILS # (AUTO) 0.2 10^3/uL (0.0-0.6); ABSOLUTE LYMPHOCYTES (AUTO) 3.4 10^3/uL (0.5-4.7); ABSOLUTE MONOCYTES (AUTO) 0.6 10^3/uL (0.1-1.4); ABSOLUTE NEUT (AUTO) 4.4 10^3/uL (1.7-8.2); BASOPHILS % (AUTO) 0.7 % (0-2); EOSINOPHILS % (AUTO) 1.9 % (0-6); HEMATOCRIT 35.6 % (36.0-47.0); HEMOGLOBIN 12.2 g/dL (12.0-15.5); LYMPHOCYTES % (AUTO) 39.5 % (13-45); MEAN CORPUSCULAR HEMOGLOBIN 28.6 pg (27.0-33.4); MEAN CORPUSCULAR HGB CONC 34.3 g/dL (32.0-36.0); MEAN CORPUSCULAR VOLUME 84 fl (80-97); MONOCYTES % (AUTO) 6.6 % (3-13); RED BLOOD COUNT 4.27 10^6/uL (3.72-5.28); SEGMENTED NEUTROPHILS % (AUTO) 51.3 % (42-78); WHITE BLOOD COUNT 8.5 10^3/uL (4.0-10.5)
[2016-11-09 07:04] LABS: ANION GAP 10 (5-19); BLOOD UREA NITROGEN 30 mg/dL (7-20); CALCIUM 9.5 mg/dL (8.4-10.2); CARBON DIOXIDE 26 mmol/L (22-30); CHLORIDE 101 mmol/L (98-107); CREATININE RESULT 0.86 mg/dL (0.52-1.25); GLUCOSE 216 mg/dL (75-110); SODIUM 137.2 mmol/L (137-145)
[2016-11-09] MEDS: METFORMIN HCL 500 MG TABLET PO SCH ×2 (07:41→17:53)
[2016-11-09] MEDS: INSULIN LISPRO 100 UNIT/ML 3 ML VIAL SUBCUT SCH ×3 (07:41→17:51)
[2016-11-09] MEDS: LANSOPRAZOLE 15 MG TAB.RAP.DR PO SCH (07:41)
[2016-11-09] MEDS: INSULIN GLARGINE,HUM.REC.ANLOG 300 UNIT/3 ML INSULN.PEN SUBCUT SCH (08:20)
[2016-11-09] MEDS: DOCUSATE SODIUM 100 MG CAPSULE PO SCH ×2 (09:54→18:37)
[2016-11-09] MEDS: TICAGRELOR 90 MG TABLET PO SCH ×2 (09:54→18:37)
[2016-11-09] MEDS: ASPIRIN 81 MG TABLET, CHEWABLE PO SCH (09:54)
[2016-11-09] MEDS: CARVEDILOL 3.125 MG TABLET PO SCH ×2 (09:54→22:25)
[2016-11-09] MEDS: GABAPENTIN 300 MG CAPSULE PO SCH ×3 (09:55→18:37)
[2016-11-09] MEDS: DULOXETINE HCL 30 MG CAPSULE.DR PO SCH (10:00)
[2016-11-09] MEDS: HYDROCODONE/ACETAMINOPHEN 5-325 MG TABLET PO PRN ×3 (10:10→21:58)
--- NOTE | 2016-11-09 13:21 | PDOC PROGRESS REPORT ---
Subjective Progress Note for:: 11/09/16 Subjective:: The patient was seen earlier today on rounds. The patient denies any nausea, vomiting, diarrhea, shortness of breath, dizziness, chest pain, heart palpitations, fevers, or chills. The patient states that she is regaining feeling in her toe. The patient denies amputation for what she cites his jain reasons. The patient has remained afebrile. Blood pressures have been in a good range. When prompted the patient voices no other concerns at this time. Review of systems: The rest of the review of systems is negative. Physical Exam Vital Signs: Temp Pulse Resp BP Pulse Ox 98.1 F 81 15 155/89 H 98 11/09/16 11:49 11/09/16 12:46 11/09/16 12:46 11/09/16 11:49 11/09/16 11:49 Intake & Output 11/07/16 11/08/16 11/09/16 23:59 23:59 23:59 Intake Total 200 Balance 200 Weight 90.1 kg General appearance: PRESENT: no acute distress, cooperative, disheveled, well- developed, well-nourished Head exam: PRESENT: atraumatic, normocephalic Eye exam: PRESENT: conjunctiva pink, EOMI, PERRLA. ABSENT: scleral icterus Ear exam: PRESENT: normal external ear exam Mouth exam: PRESENT: moist, tongue midline Neck exam: ABSENT: carotid bruit, JVD, lymphadenopathy, thyromegaly Respiratory exam: PRESENT: clear to auscultation lito, symmetrical, unlabored. ABSENT: rales, rhonchi, tachypnea, wheezes Cardiovascular exam: PRESENT: RRR. ABSENT: diastolic murmur, rubs, systolic murmur Pulses: PRESENT: normal dorsalis pedis pul Vascular exam: PRESENT: normal capillary refill GI/Abdominal exam: PRESENT: normal bowel sounds, soft. ABSENT: distended, guarding, mass, organolmegaly, rebound, tenderness Rectal exam: PRESENT: deferred Extremities exam: PRESENT: full ROM. ABSENT: calf tenderness, clubbing, pedal edema Musculoskeletal exam: PRESENT: other - Toe on right foot is wrapped in Kerlix Neurological exam: PRESENT: alert, awake, oriented to person, oriented to place , oriented to time, oriented to situation, CN II-XII grossly intact. ABSENT: motor sensory deficit Psychiatric exam: PRESENT: appropriate affect, normal mood. ABSENT: homicidal ideation, suicidal ideation Skin exam: PRESENT: dry, intact, warm. ABSENT: cyanosis, rash Results Laboratory Results: 11/09/16 05:57 11/09/16 05:57 11/08/16 11/09/16 11/09/16 15:48 05:57 05:57 WBC 8.5 RBC 4.27 Hgb 12.2 Hct 35.6 L MCV 84 MCH 28.6 MCHC 34.3 RDW 13.0 Plt Count 328 Seg Neutrophils % 51.3 Lymphocytes % 39.5 Monocytes % 6.6 Eosinophils % 1.9 Basophils % 0.7 Absolute Neutrophils 4.4 Absolute Lymphocytes 3.4 Absolute Monocytes 0.6 Absolute Eosinophils 0.2 Absolute Basophils 0.1 Sodium 137.2 Potassium 5.0 Chloride 101 Carbon Dioxide 26 Anion Gap 10 BUN 30 H Creatinine 0.79 0.86 Est GFR ( Amer) > 60 > 60 Est GFR (Non-Af Amer) > 60 > 60 Glucose 216 H Calcium 9.5 Assessment & Plan - Diagnosis (1) Diabetic foot infection Is this a current diagnosis for this admission?: YesPlan: As per surgery will continue antibiotic coverage and reevaluate in the a.m. At this time the patient is refusing amputation. (2) Diabetes 1.5, managed as type 1 Is this a current diagnosis for this admission?: YesPlan: Blood sugars are still elevated will increase basal dose insulin and continue sliding scale coverage. (3) Coronary artery disease Qualifiers: Coronary Disease-Associated Artery/Lesion type: [place] artery Is this a current diagnosis for this admission?: YesPlan: Will continue home medications. (4) Dyslipidemia Is this a current diagnosis for this admission?: YesPlan: Will continue home medications. (5) Peripheral vascular disease Is this a current diagnosis for this admission?: YesPlan: Will continue home medications. (6) Noncompliance Is this a current diagnosis for this admission?: Yes - Time Time Spent with patient: 25-34 minutes Medications reviewed and adjusted accordingly: Yes Anticipated discharge: Home Within: within 24 hours, within 48 hours Disposition: The patient is a full code. Pending patient's symptomatology and diagnostic findings will reevaluate in the a.m.
--- NOTE | 2016-11-09 15:16 | XCELERA REPORT ---
[address] [address] Lower Extremity Arterial Evaluation Name: CAITLYN DUARTE Age: 56 yrs Gender: Female : 1960 Patient Status: Inpatient Patient Location: 2N\S\208\S\A Study Date: 11/09/2016 11:19 AM Procedure: A color flow and duplex scan of the lower extremity arteries was performed bilaterally with velocity and waveform anaylsis. Reason For Study: Wounds Ordering Physician: HELGA GANNON Performed By: Suzanna Lopez Measurements and Calculations Right Left EMERGENCY MANAGEMENT COORDINATOR PSV 78.1 93.3 cm/sec Prox PFA PSV 69.7 -82.5 cm/sec Prox SFA PSV 102.6 110.0 cm/sec Mid SFA PSV -80.0 -82.1 cm/sec Dist SFA PSV -57.3 -114.9 cm/sec Prox Pop A PSV 116.3 79.6 cm/sec Dist ESTRELLITA PSV 77.0 13.8 cm/sec Dist PANTOGRAPHER PSV 37.1 54.7 cm/sec Jose Armando Pedis PSV 11.2 28.1 cm/sec Right Side Arterial Evaluation Normal velocity and triphasic waveforms noted from the Common Femoral artery to the Popliteal. Biphasic in the Deep femoral, good velocity, and in the Posterior Tibial with moderate spectral broadening, diminished velocity. Monophasic with spectral broadening, attenuation in the Anterior Tibial artery . 20-49 % stenosis at the Posterior Tibial artery. Ankle Brachial index was not done. Left Side Arterial Evaluation Normal velocity and biphasic waveforms noted from the Common Femoral artery to the Popliteal artery with mild spectral broadening. Biphasic with spectral broadening in the Posterior Tibial artery. Monophasic in the Anterior tibial with diminished velocity. 20-49 % stenosis at the inflow. With sequential changes. Ankle Brachial index was not done. Interpretation Summary Moderate hemodynamically significant lesions in the bilateral lower extremities, on duplex imaging, at rest. : HELGA GANNON > Lázaro Richardson
[2016-11-09] MEDS: ATORVASTATIN CALCIUM 40 MG TABLET PO SCH (22:26)
--- NOTE | 2016-11-10 00:58 | PROGRESS NOTE E ---
Progress Note NAME: CAITLYN DUARTE : 1960 AGE: 56Y DATE: 11/09/2016 ROOM: 208 SUBJECTIVE: Patient presents with an injury to her right foot third digit. This has now progressed onto wet gangrene. Patient is insistent on continued medical therapy at this time consisting of local wound care along with IV antibiotics. No complaints of pain in the foot at this time. OBJECTIVE: Patient has continued gangrene of the right foot third digit. LABORATORY DATA: White blood cell count of 8.5, hemoglobin of 12. ASSESSMENT: Diabetic foot infection of the right foot third digit with wet gangrene. It does not appear to have any significant cellulitis or spread in the forefoot clinically at this time; however, I cannot say for sure without exploring the wound. I have recommended that she undergo amputation of this digit, guillotine style, and once the infection is cleared, then to close the wound. She would like to wait at least another day with medical therapy to see if this will improve or not. PLAN: 1. Continue local wound care. 2. IV antibiotics. 3. We will re-evaluate the wound in the morning and see if the patient is willing to undergo amputation of this third digit on the right foot. DICTATING PHYSICIAN: SHARATH RINCON M.D. [id number] PHY#: [id number] ID: [id number] JOB#: [id number] ACCT: [id number] cc: >
[2016-11-10 02:53] LABS: ABSOLUTE BASOPHILS # (AUTO) 0.1 10^3/uL (0.0-0.2); ABSOLUTE EOSINOPHILS # (AUTO) 0.2 10^3/uL (0.0-0.6); ABSOLUTE LYMPHOCYTES (AUTO) 3.4 10^3/uL (0.5-4.7); ABSOLUTE MONOCYTES (AUTO) 0.6 10^3/uL (0.1-1.4); ABSOLUTE NEUT (AUTO) 3.9 10^3/uL (1.7-8.2); EOSINOPHILS % (AUTO) 2.3 % (0-6); HEMATOCRIT 33.5 % (36.0-47.0); HEMOGLOBIN 11.7 g/dL (12.0-15.5); HGB HCT DIFFERENCE 1.6; LYMPHOCYTES % (AUTO) 41.7 % (13-45); MEAN CORPUSCULAR HEMOGLOBIN 29.2 pg (27.0-33.4); MEAN CORPUSCULAR VOLUME 83 fl (80-97); MONOCYTES % (AUTO) 7.2 % (3-13); RED BLOOD COUNT 4.02 10^6/uL (3.72-5.28); SEGMENTED NEUTROPHILS % (AUTO) 47.8 % (42-78); WHITE BLOOD COUNT 8.2 10^3/uL (4.0-10.5)
[2016-11-10 03:07] LABS: ANION GAP 11 (5-19); BLOOD UREA NITROGEN 29 mg/dL (7-20); CALCIUM 8.9 mg/dL (8.4-10.2); CARBON DIOXIDE 24 mmol/L (22-30); CHLORIDE 103 mmol/L (98-107); CREATININE RESULT 0.97 mg/dL (0.52-1.25); GLUCOSE 171 mg/dL (75-110); POTASSIUM 4.9 mmol/L (3.6-5.0)
[2016-11-10] MEDS: VANCOMYCIN HCL 1,000 MG in DEXTROSE 5%-WATER 250 ML IV SCH (03:28)
[2016-11-10] MEDS: HYDROCODONE/ACETAMINOPHEN 5-325 MG TABLET PO PRN ×2 (06:21→21:54)
[2016-11-10] MEDS: INSULIN LISPRO 100 UNIT/ML 3 ML VIAL SUBCUT PRN ×2 (06:22→22:03)
[2016-11-10] MEDS: CEFEPIME 1 GM/D5W RTU 1 GM/50 ML RTUPB IV SCH ×2 (06:53→17:59)
[2016-11-10] MEDS: HEPARIN SOD (PORCINE) 5,000 UNIT/ML 1 ML SYRINGE SUBCUT SCH ×3 (08:44→21:54)
[2016-11-10] MEDS: METFORMIN HCL 500 MG TABLET PO SCH ×2 (08:52→16:54)
[2016-11-10] MEDS: LANSOPRAZOLE 15 MG TAB.RAP.DR PO SCH (08:52)
[2016-11-10] MEDS: INSULIN LISPRO 100 UNIT/ML 3 ML VIAL SUBCUT SCH ×3 (08:53→16:54)
[2016-11-10] MEDS: INSULIN GLARGINE,HUM.REC.ANLOG 300 UNIT/3 ML INSULN.PEN SUBCUT SCH (08:53)
[2016-11-10] MEDS: SILVER SULFADIAZINE 1% CREAM 25 GM TP SCH ×2 (08:53→17:59)
--- NOTE | 2016-11-10 10:18 | PDOC PROGRESS REPORT ---
Subjective Progress Note for:: 11/10/16 Subjective:: The patient was seen earlier today on rounds. The patient denies any nausea, vomiting, diarrhea, shortness of breath, dizziness, chest pain, heart palpitations, fevers, or chills. The patient states that she is regaining feeling in her toe. Bedside debridement done by surgery today. The patient denies amputation for what she cites his baptism reasons. The patient has remained afebrile. Blood pressures have been in a good range. When prompted the patient voices no other concerns at this time. Review of systems: The rest of the review of systems is negative. Physical Exam Vital Signs: Temp Pulse Resp BP Pulse Ox 98.3 F 75 16 119/72 98 11/10/16 03:48 11/10/16 03:48 11/10/16 03:48 11/10/16 03:48 11/10/16 03:48 Intake & Output 11/08/16 11/09/16 11/10/16 23:59 23:59 23:59 Intake Total 1160 350 Balance 1160 350 Weight 90.1 kg 90.3 kg General appearance: PRESENT: no acute distress, cooperative, disheveled, well- developed, well-nourished Head exam: PRESENT: atraumatic, normocephalic Eye exam: PRESENT: conjunctiva pink, EOMI, PERRLA. ABSENT: scleral icterus Ear exam: PRESENT: normal external ear exam Mouth exam: PRESENT: moist, tongue midline Neck exam: ABSENT: carotid bruit, JVD, lymphadenopathy, thyromegaly Respiratory exam: PRESENT: clear to auscultation lito, symmetrical, unlabored. ABSENT: rales, rhonchi, tachypnea, wheezes Cardiovascular exam: PRESENT: RRR. ABSENT: diastolic murmur, rubs, systolic murmur Pulses: PRESENT: normal dorsalis pedis pul Vascular exam: PRESENT: normal capillary refill GI/Abdominal exam: PRESENT: normal bowel sounds, soft. ABSENT: distended, guarding, mass, organolmegaly, rebound, tenderness Rectal exam: PRESENT: deferred Extremities exam: PRESENT: full ROM. ABSENT: calf tenderness, clubbing, pedal edema Musculoskeletal exam: PRESENT: other - Toe on right foot is wrapped in Kerlix Neurological exam: PRESENT: alert, awake, oriented to person, oriented to place , oriented to time, oriented to situation, CN II-XII grossly intact. ABSENT: motor sensory deficit Psychiatric exam: PRESENT: appropriate affect, normal mood. ABSENT: homicidal ideation, suicidal ideation Skin exam: PRESENT: dry, intact, warm. ABSENT: cyanosis, rash Results Laboratory Results: 11/10/16 02:30 11/10/16 02:30 11/10/16 11/10/16 02:30 02:30 WBC 8.2 RBC 4.02 Hgb 11.7 L Hct 33.5 L MCV 83 MCH 29.2 MCHC 35.0 RDW 13.0 Plt Count 283 Seg Neutrophils % 47.8 Lymphocytes % 41.7 Monocytes % 7.2 Eosinophils % 2.3 Basophils % 1.0 Absolute Neutrophils 3.9 Absolute Lymphocytes 3.4 Absolute Monocytes 0.6 Absolute Eosinophils 0.2 Absolute Basophils 0.1 Sodium 138.0 Potassium 4.9 Chloride 103 Carbon Dioxide 24 Anion Gap 11 BUN 29 H Creatinine 0.97 Est GFR ( Amer) > 60 Est GFR (Non-Af Amer) > 60 Glucose 171 H Calcium 8.9 Assessment & Plan - Diagnosis (1) Diabetic foot infection Is this a current diagnosis for this admission?: YesPlan: As per surgery will continue antibiotic coverage and reevaluate in the a.m. the patient has not had a history of MRSA therefore will discontinue vancomycin. At this time the patient is refusing amputation. (2) Diabetes 1.5, managed as type 1 Is this a current diagnosis for this admission?: YesPlan: Increased basal dose insulin and continue sliding scale coverage. (3) Coronary artery disease Qualifiers: Coronary Disease-Associated Artery/Lesion type: [place] artery Is this a current diagnosis for this admission?: YesPlan: Will continue home medications. (4) Dyslipidemia Is this a current diagnosis for this admission?: YesPlan: Will continue home medications. (5) Peripheral artery disease Is this a current diagnosis for this admission?: YesPlan: Refer the patient to vascular surgery at discharge. (6) Noncompliance Is this a current diagnosis for this admission?: Yes - Time Time Spent with patient: 25-34 minutes Medications reviewed and adjusted accordingly: Yes Anticipated discharge: Home Within: within 24 hours
[2016-11-10] MEDS: DOCUSATE SODIUM 100 MG CAPSULE PO SCH ×2 (10:49→17:59)
[2016-11-10] MEDS: CARVEDILOL 3.125 MG TABLET PO SCH ×2 (10:50→21:49)
[2016-11-10] MEDS: DULOXETINE HCL 30 MG CAPSULE.DR PO SCH (10:50)
[2016-11-10] MEDS: TICAGRELOR 90 MG TABLET PO SCH ×2 (10:50→17:59)
[2016-11-10] MEDS: GABAPENTIN 300 MG CAPSULE PO SCH ×3 (10:50→17:59)
[2016-11-10] MEDS: ASPIRIN 81 MG TABLET, CHEWABLE PO SCH (10:50)
[2016-11-10] MEDS: ATORVASTATIN CALCIUM 40 MG TABLET PO SCH (21:49)
[2016-11-11] MEDS: HEPARIN SOD (PORCINE) 5,000 UNIT/ML 1 ML SYRINGE SUBCUT SCH ×3 (05:38→21:23)
[2016-11-11] MEDS: CEFEPIME 1 GM/D5W RTU 1 GM/50 ML RTUPB IV SCH ×2 (05:39→18:28)
[2016-11-11] MEDS: CARVEDILOL 3.125 MG TABLET PO SCH ×2 (09:11→21:22)
[2016-11-11] MEDS: METFORMIN HCL 500 MG TABLET PO SCH ×2 (09:11→17:10)
[2016-11-11] MEDS: TICAGRELOR 90 MG TABLET PO SCH ×2 (09:12→17:10)
[2016-11-11] MEDS: LANSOPRAZOLE 15 MG TAB.RAP.DR PO SCH (09:12)
[2016-11-11] MEDS: DOCUSATE SODIUM 100 MG CAPSULE PO SCH ×2 (09:12→17:10)
[2016-11-11] MEDS: DULOXETINE HCL 30 MG CAPSULE.DR PO SCH (09:12)
[2016-11-11] MEDS: GABAPENTIN 300 MG CAPSULE PO SCH ×3 (09:12→17:10)
[2016-11-11] MEDS: INSULIN LISPRO 100 UNIT/ML 3 ML VIAL SUBCUT SCH ×3 (09:13→17:55)
[2016-11-11] MEDS: INSULIN GLARGINE,HUM.REC.ANLOG 300 UNIT/3 ML INSULN.PEN SUBCUT SCH (09:13)
[2016-11-11] MEDS: ASPIRIN 81 MG TABLET, CHEWABLE PO SCH (09:14)
[2016-11-11] MEDS: SILVER SULFADIAZINE 1% CREAM 25 GM TP SCH ×2 (09:14→18:49)
--- NOTE | 2016-11-11 11:58 | PDOC PROGRESS REPORT ---
Subjective Progress Note for:: 11/11/16 Subjective:: The patient was seen earlier today on rounds in conjunction with the surgicalist. The patient denies any nausea, vomiting, diarrhea, shortness of breath, dizziness, chest pain, heart palpitations, fevers, or chills. The patient states that she is regaining feeling in her toe. Bedside debridement done by surgery yesterday. The patient denies amputation for what she cites his roman catholic reasons. The patient has remained afebrile. Blood pressures have been in a good range. When prompted the patient voices no other concerns at this time. The patient has agreed to MRI to evaluate for osteomyelitis. Review of systems: The rest of the review of systems is negative. Physical Exam Vital Signs: Temp Pulse Resp BP Pulse Ox 98.3 F 79 16 129/74 H 95 11/11/16 07:37 11/11/16 07:37 11/11/16 07:37 11/11/16 07:37 11/11/16 07:37 Intake & Output 11/09/16 11/10/16 11/11/16 23:59 23:59 23:59 Intake Total 8929 510 5030 Output Total 1900 Balance 1160 350 -900 Weight 90.1 kg 90.3 kg 96.4 kg General appearance: PRESENT: no acute distress, cooperative, disheveled, well- developed, well-nourished Head exam: PRESENT: atraumatic, normocephalic Eye exam: PRESENT: conjunctiva pink, EOMI, PERRLA. ABSENT: scleral icterus Ear exam: PRESENT: normal external ear exam Mouth exam: PRESENT: moist, tongue midline Neck exam: ABSENT: carotid bruit, JVD, lymphadenopathy, thyromegaly Respiratory exam: PRESENT: clear to auscultation lito, symmetrical, unlabored. ABSENT: rales, rhonchi, tachypnea, wheezes Cardiovascular exam: PRESENT: RRR. ABSENT: diastolic murmur, rubs, systolic murmur Pulses: PRESENT: normal dorsalis pedis pul Vascular exam: PRESENT: normal capillary refill GI/Abdominal exam: PRESENT: normal bowel sounds, soft. ABSENT: distended, guarding, mass, organolmegaly, rebound, tenderness Rectal exam: PRESENT: deferred Extremities exam: PRESENT: full ROM. ABSENT: calf tenderness, clubbing, pedal edema Musculoskeletal exam: PRESENT: other - Toe on right foot is wrapped in Kerlix Neurological exam: PRESENT: alert, awake, oriented to person, oriented to place , oriented to time, oriented to situation, CN II-XII grossly intact. ABSENT: motor sensory deficit Psychiatric exam: PRESENT: appropriate affect, normal mood. ABSENT: homicidal ideation, suicidal ideation Skin exam: PRESENT: dry, intact, warm. ABSENT: cyanosis, rash Results Laboratory Results: 11/10/16 02:30 11/10/16 02:30 Assessment & Plan - Diagnosis (1) Diabetic foot infection Is this a current diagnosis for this admission?: YesPlan: As per surgery will continue antibiotic coverage and reevaluate in the a.m. the patient has not had a history of MRSA therefore discontinued vancomycin. At this time the patient is refusing amputation but is willing to undergo MRI for evaluation of osteomyelitis. (2) Diabetes 1.5, managed as type 1 Is this a current diagnosis for this admission?: YesPlan: Increased basal dose insulin and continue sliding scale coverage. (3) Coronary artery disease Qualifiers: Coronary Disease-Associated Artery/Lesion type: [place] artery Is this a current diagnosis for this admission?: YesPlan: Will continue home medications. (4) Dyslipidemia Is this a current diagnosis for this admission?: YesPlan: Will continue home medications. (5) Peripheral artery disease Is this a current diagnosis for this admission?: YesPlan: Refer the patient to vascular surgery at discharge. (6) Noncompliance Is this a current diagnosis for this admission?: Yes - Time Time Spent with patient: 25-34 minutes Medications reviewed and adjusted accordingly: Yes Anticipated discharge: Home Within: within 24 hours, within 48 hours
--- NOTE | 2016-11-11 12:18 | PROGRESS NOTE E ---
Progress Note NAME: CAITLYN DUARTE : 1960 AGE: 56Y DATE: 11/11/2016 ROOM: 208 SUBJECTIVE: The patient is a 56-year-old female who has had a diabetic foot third toe, left foot. This has been suggested that she undergo an amputation and the patient has previously refused. The toe is examined. The wound shows approximately a cm area of velasquez eschar not requiring any debridement very close to the bone. Her cellulitis has resolved and the patient states that she has a better sense of well being. I have discussed this with SANNA Wong and my recommendation is to get a MRI to see if there is any bony involvement. Clearly if there is bony involvement, the digit will have to be amputated. I discussed this with the patient and I think she is more in agreement if it does show osteomyelitis. If there is no osteomyelitis, then continued treatment with antibiotics and wound care is appropriate. The MRI will be ordered today and we will await the results. DICTATING PHYSICIAN: DOV DUNAWAY M.D. [id number] PHY#: [id number] ID: [id number] JOB#: [id number] ACCT: [id number] cc: >
[2016-11-11] MEDS: ATORVASTATIN CALCIUM 40 MG TABLET PO SCH (21:22)
[2016-11-12] MEDS: INSULIN LISPRO 100 UNIT/ML 3 ML VIAL SUBCUT PRN ×2 (00:32→06:30)
[2016-11-12] MEDS: HYDROCODONE/ACETAMINOPHEN 5-325 MG TABLET PO PRN ×2 (01:10→14:22)
[2016-11-12] MEDS: HEPARIN SOD (PORCINE) 5,000 UNIT/ML 1 ML SYRINGE SUBCUT SCH ×2 (05:31→15:32)
[2016-11-12] MEDS: CEFEPIME 1 GM/D5W RTU 1 GM/50 ML RTUPB IV SCH ×2 (05:33→17:17)
[2016-11-12] MEDS: INSULIN GLARGINE,HUM.REC.ANLOG 300 UNIT/3 ML INSULN.PEN SUBCUT SCH (09:06)
[2016-11-12] MEDS: LANSOPRAZOLE 15 MG TAB.RAP.DR PO SCH (09:08)
[2016-11-12] MEDS: ASPIRIN 81 MG TABLET, CHEWABLE PO SCH (09:08)
[2016-11-12] MEDS: METFORMIN HCL 500 MG TABLET PO SCH ×2 (09:08→17:17)
[2016-11-12] MEDS: DOCUSATE SODIUM 100 MG CAPSULE PO SCH ×2 (09:08→17:57)
[2016-11-12] MEDS: DULOXETINE HCL 30 MG CAPSULE.DR PO SCH (09:09)
[2016-11-12] MEDS: CARVEDILOL 3.125 MG TABLET PO SCH (09:09)
[2016-11-12] MEDS: INSULIN LISPRO 100 UNIT/ML 3 ML VIAL SUBCUT SCH ×3 (09:11→16:34)
[2016-11-12] MEDS: TICAGRELOR 90 MG TABLET PO SCH ×2 (09:12→17:18)
[2016-11-12] MEDS: SILVER SULFADIAZINE 1% CREAM 25 GM TP SCH ×2 (09:12→17:18)
[2016-11-12] MEDS: GABAPENTIN 300 MG CAPSULE PO SCH ×3 (09:14→17:21)
--- NOTE | 2016-11-12 11:13 | PROGRESS NOTE E ---
Progress Note NAME: CAITLYN DUARTE : 1960 AGE: 56Y DATE: 11/12/2016 ROOM: 225 SUBJECTIVE: The patient is feeling about the same. Does not have any complaints regarding her toe. Objectively, the toe is about the same with the same velasquez tissue overlying it. There is no bony exposure. No labs have been done. She is afebrile. A MRI was done of the toe which does show some swelling of the bones but no cortical breaks. Differential diagnosis was osteomyelitis. ASSESSMENT: Partially equivocal finding. There is no bony exposure on exam of the wound and there are no cortical breaks seen on x-ray. Given the patient's wishes for continued medical therapy, she would require approximately 6 weeks of IV antibiotics and local wound care. I have ordered a wound VAC today to minimize the manipulation of the toe and this may actually heal this. She should get a PICC line and ID consult for antibiotics and could be discharged at that point. If she fails this management, then a toe amputation would be required. DICTATING PHYSICIAN: DOV DUNAWAY M.D. [id number] PHY#: [id number] ID: [id number] JOB#: [id number] ACCT: [id number] cc: >
[2016-11-12 17:44] LABS: PROTHROMBIN TIME 11.4 SEC (11.4-15.4)
[2016-11-12 18:02] VITALS: BP 147/75
--- NOTE | 2016-11-13 16:52 | PDOC DISCHARGE SUMMARY ---
General - Admit/Disc Date/PCP Admission Date/Primary Care Provider: 11/07/16 02:45 Discharge Date: 11/12/16 - Discharge Diagnosis (1) Diabetic foot infection Is this a current diagnosis for this admission?: YesSummary: Suspicion for osteomyelitis (2) Diabetes 1.5, managed as type 1 Is this a current diagnosis for this admission?: Yes (3) Coronary artery disease Is this a current diagnosis for this admission?: Yes (4) Dyslipidemia Is this a current diagnosis for this admission?: Yes (5) Peripheral artery disease Is this a current diagnosis for this admission?: Yes (6) Noncompliance Is this a current diagnosis for this admission?: Yes - Additional Information Resuscitation Status: Full Code Discharge Diet: As Tolerated, Diabetic Discharge Activity: Activity As Tolerated, Keep Legs Elevated Home Medications: Atorvastatin Calcium [Lipitor 40 mg Tablet] 40 mg PO QHS 04/29/13 Aspirin [Aspirin 81 mg Chewable Tablet] 81 mg PO DAILY #0 tab.chew 05/01/13 Hydrocodone/Acetaminophen [[place] 5-325 mg Tablet] 1 tab PO Q4 PRN #16 tablet Carvedilol [Coreg 3.125 mg Tablet] 3.125 mg PO Q12 11/07/16 Ergocalciferol (Vitamin D2) [Drisdol 50,000 unit (1.25MG) Capsule] 50,000 unit PO HERNANDEZ 11/07/16 Gabapentin [Neurontin] 600 mg PO TID 11/07/16 Insulin Aspart [Novolog Flexpen] 0 unit SUBCUT .SLD SCALE 11/07/16 Insulin Aspart [Novolog Flexpen] 6 unit SUBCUT AC 11/07/16 Lorazepam [Ativan 0.5 mg Tablet] 0.25 mg PO DAILYP PRN 11/07/16 Ticagrelor [Brilinta 90 mg Tablet] 90 mg PO BID 11/07/16 Cefepime 1 gm/D5w RTU [Maxipime RTU 1 gm/D5w 50 ml Premix Bag] 1 gm IV Q12 #70 rtupb 11/12/16 Insulin Glargine,Hum.rec.anlog [Lantus Insulin 100 Unit/mL] 50 unit SUBCUT QAM # 0 11/12/16 Silver Sulfadiazine [Silvadene 1% Cream 25 gm] 1 applic TP BID #1 tube 11/12/16 History of Present Illness Patient complains of: Right third toe infection History of Present Illness: CAITLYN DUARTE is a 56 year old female with a past medical history of hypertension, coronary artery disease with stents and diabetes who is had approximately 1 week of erythema swelling and malodorous risk discharge from her right third toe for which she initially 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 In the emergency room she started on vancomycin and ciprofloxacin and referred to the hospitalist for admission. Patient denies previous episode she admits compliance with diabetic regiment. She denies fever chills palpitations or shortness of breath Hospital Course Hospital Course: The patient was admitted to continuous telemetry unit. Blood cultures were obtained. Patient was started on broad-spectrum IV antibiotic coverage. Blood cultures revealed no growth. The patient had drastic improvement of symptoms. Patient had a bedside debridement with surgery. The patient adamantly refused amputation. MRI was suspicious for possible osteomyelitis but not conclusive. No further fever, white count has improved, and clinical assessment has improved. Dressing changes will be twice a day with Silvadene. The patient is to follow- up with the wound care clinic outpatient. She did have an arterial Doppler which was suggestive of bilateral stenosis. The patient has been referred to [facility] vascular surgery. Blood sugars were controlled with an increased dose of basal. Home IV antibiotics have been arranged through the director social. Patient has had PICC line placement today. Patient is ready for discharge and has been cleared for discharge from a surgical standpoint with outpatient IV antibiotics. Physical Exam Vital Signs: Temp Pulse Resp BP Pulse Ox 97.4 F 86 15 143/83 H 100 11/12/16 15:26 11/12/16 15:26 11/12/16 15:26 11/12/16 15:26 11/12/16 15:26 Intake & Output 11/10/16 11/11/16 11/12/16 23:59 23:59 23:59 Intake Total 350 2015 Output Total 2800 1999 Balance 350 -474 2000 Weight 90.3 kg 96.4 kg 97.2 kg General appearance: PRESENT: no acute distress, cooperative, disheveled, well- developed, well-nourished Head exam: PRESENT: atraumatic, normocephalic Eye exam: PRESENT: conjunctiva pink, EOMI, PERRLA. ABSENT: scleral icterus Ear exam: PRESENT: normal external ear exam Mouth exam: PRESENT: moist, tongue midline Neck exam: ABSENT: carotid bruit, JVD, lymphadenopathy, thyromegaly Respiratory exam: PRESENT: clear to auscultation lito, symmetrical, unlabored. ABSENT: rales, rhonchi, tachypnea, wheezes Cardiovascular exam: PRESENT: RRR. ABSENT: diastolic murmur, rubs, systolic murmur Pulses: PRESENT: normal dorsalis pedis pul Vascular exam: PRESENT: normal capillary refill GI/Abdominal exam: PRESENT: normal bowel sounds, soft. ABSENT: distended, guarding, mass, organolmegaly, rebound, tenderness Rectal exam: PRESENT: deferred Extremities exam: PRESENT: full ROM. ABSENT: calf tenderness, clubbing, pedal edema Musculoskeletal exam: PRESENT: other - Toe on right foot is wrapped in Kerlix Neurological exam: PRESENT: alert, awake, oriented to person, oriented to place , oriented to time, oriented to situation, CN II-XII grossly intact. ABSENT: motor sensory deficit Psychiatric exam: PRESENT: appropriate affect, normal mood. ABSENT: homicidal ideation, suicidal ideation Skin exam: PRESENT: dry, intact, warm. ABSENT: cyanosis, rash Results Laboratory Results: Labs- Last Values WBC 8.2 10^3/uL (4.0-10.5) 11/10/16 02:30 RBC 4.02 10^6/uL (3.72-5.28) 11/10/16 02:30 Hgb 11.7 g/dL (12.0-15.5) L 11/10/16 02:30 Hct 33.5 % (36.0-47.0) L 11/10/16 02:30 MCV 83 fl (80-97) 11/10/16 02:30 MCH 29.2 pg (27.0-33.4) 11/10/16 02:30 MCHC 35.0 g/dL (32.0-36.0) 11/10/16 02:30 RDW 13.0 % (11.5-14.0) 11/10/16 02:30 Plt Count 283 10^3/uL (150-450) 11/10/16 02:30 Seg Neutrophils % 47.8 % (42-78) 11/10/16 02:30 Lymphocytes % 41.7 % (13-45) 11/10/16 02:30 Monocytes % 7.2 % (3-13) 11/10/16 02:30 Eosinophils % 2.3 % (0-6) 11/10/16 02:30 Basophils % 1.0 % (0-2) 11/10/16 02:30 Absolute Neutrophils 3.9 10^3/uL (1.7-8.2) 11/10/16 02:30 Absolute Lymphocytes 3.4 10^3/uL (0.5-4.7) 11/10/16 02:30 Absolute Monocytes 0.6 10^3/uL (0.1-1.4) 11/10/16 02:30 Absolute Eosinophils 0.2 10^3/uL (0.0-0.6) 11/10/16 02:30 Absolute Basophils 0.1 10^3/uL (0.0-0.2) 11/10/16 02:30 PT 11.4 SEC (11.4-15.4) 11/12/16 16:40 INR 0.81 11/12/16 16:40 Sodium 138.0 mmol/L (137-145) 11/10/16 02:30 Potassium 4.9 mmol/L (3.6-5.0) 11/10/16 02:30 Chloride 103 mmol/L (98-107) 11/10/16 02:30 Carbon Dioxide 24 mmol/L (22-30) 11/10/16 02:30 Anion Gap 11 (5-19) 11/10/16 02:30 BUN 29 mg/dL (7-20) H 11/10/16 02:30 Creatinine 0.97 mg/dL (0.52-1.25) 11/10/16 02:30 Est GFR ( Amer) > 60 (>60) 11/10/16 02:30 Est GFR (Non-Af Amer) > 60 (>60) 11/10/16 02:30 Glucose 171 mg/dL (75-110) H 11/10/16 02:30 POC Glucose 104 mg/dL (70-110) 11/12/16 15:58 Hemoglobin A1c % 12.6 % (4.7-6.0) H 11/07/16 01:35 Calcium 8.9 mg/dL (8.4-10.2) 11/10/16 02:30 Time Trough Drawn 0230 11/10/16 02:30 Vancomycin Trough 17.2 ug/mL (5.0-20.0) 11/10/16 02:30 11/07/16 15:00 Blood Culture - Final Blood NO GROWTH IN 5 DAYS 11/07/16 11:00 Blood Culture - Final Blood NO GROWTH IN 5 DAYS 11/06/16 23:35 Gram Stain - Final Foot - Deep Wound Wound Culture - Final Klebsiella Pneumoniae Serratia Marcescens Group B Beta Streptococcus Skin Anum Impressions: Lower Extremity MRI 11/11/16 10:56 IMPRESSION: Moderate nonspecific edema of predominantly the right 3rd middle phalanx and right 3rd proximal phalangeal head. Differential diagnosis includes osteomyelitis. Guidance Fluoroscopy 11/12/16 00:00 IMPRESSION: SUCCESSFUL PLACEMENT OF A 5 FR DUAL LUMEN 35 CM PICC IN THE right basilic VEIN. Interventional Vascular Procedure 11/12/16 00:00 IMPRESSION: SUCCESSFUL PLACEMENT OF A 5 FR DUAL LUMEN 35 CM PICC IN THE right basilic VEIN. PICC Line Insertion 11/12/16 00:00 IMPRESSION: SUCCESSFUL PLACEMENT OF A 5 FR DUAL LUMEN 35 CM PICC IN THE right basilic VEIN. Qualifiers PATEINT BEING DISCHARGED WITH ANY OF THE FOLLOWING DIAGNOSIS?: No Plan Discharge Plan: Time spent on this discharge including assessment plan physical examination patient education specialty collaboration and resource alignment is 35 minutes. Time Spent: Greater than 30 Minutes
== END 2016-11-12 20:39 | disposition home health service (06) | DRG 300 ==
LOC: ER 20:09 → EH 11-07 02:45 → UNDOADMIN 11-07 03:04 → EH 11-07 03:04 → 2N 11-07 08:00 → 2S 11-11 15:50
PROVIDERS: ADMIT Internal Medicine; ATTEND Internal Medicine
PROC: 3E0F73Z Introduction of Anti-inflammatory into Respiratory Tract, Via Natural or Artificial Opening (ICD-10-PCS; 2016-11-07)
PROC: 02HV33Z Insertion of Infusion Device into Superior Vena Cava, Percutaneous Approach (ICD-10-PCS; principal; 2016-11-12)
PROC: B518ZZA Fluoroscopy of Superior Vena Cava, Guidance (ICD-10-PCS; 2016-11-12)
PROC: B548ZZA Ultrasonography of Superior Vena Cava, Guidance (ICD-10-PCS; 2016-11-12)
DX: E10.52 Type 1 diabetes mellitus with diabetic peripheral angiopathy with gangrene (principal); E10.69 Type 1 diabetes mellitus with other specified complication; E78.5 Hyperlipidemia, unspecified; I25.10 Atherosclerotic heart disease of native coronary artery without angina pectoris; G43.909 Migraine, unspecified, not intractable, without status migrainosus; I10 Essential (primary) hypertension; K21.9 Gastro-esophageal reflux disease without esophagitis; F32.9 Major depressive disorder, single episode, unspecified; Z53.29 Procedure and treatment not carried out because of patient's decision for other reasons; I25.2 Old myocardial infarction; Z95.5 Presence of coronary angioplasty implant and graft; Z91.19 Patient's noncompliance with other medical treatment and regimen; Z79.4 Long term (current) use of insulin; Z79.899 Other long term (current) drug therapy; Z88.0 Allergy status to penicillin; Z83.3 Family history of diabetes mellitus; Z82.49 Family history of ischemic heart disease and other diseases of the circulatory system
CPT/HCPCS: 36415; 36569; 76937; 77001; 80048; 80202; 82565; 82962; 83036; 85025; 85610; 87040; 87070; 87075; 87077; 87186; 87205; 93925; 96365; 96375; 99284; J0692; J0744; J1642; J1644; J1815; J2405; J3010; J3370; J3490; J7060; S0119

== ENCOUNTER 2016-11-20 21:33 | Emergency (ER) | payer MEDICAID ==
[2016-11-20 22:31] VITALS: BP 149/91
[2016-11-20 23:58] LABS: ABSOLUTE BASOPHILS # (AUTO) 0.1 10^3/uL (0.0-0.2); ABSOLUTE EOSINOPHILS # (AUTO) 0.3 10^3/uL (0.0-0.6); ABSOLUTE LYMPHOCYTES (AUTO) 2.7 10^3/uL (0.5-4.7); ABSOLUTE MONOCYTES (AUTO) 0.5 10^3/uL (0.1-1.4); ABSOLUTE NEUT (AUTO) 4.8 10^3/uL (1.7-8.2); EOSINOPHILS % (AUTO) 3.2 % (0-6); HEMATOCRIT 32.8 % (36.0-47.0); HEMOGLOBIN 11.3 g/dL (12.0-15.5); HGB HCT DIFFERENCE 1.1; LYMPHOCYTES % (AUTO) 31.9 % (13-45); MEAN CORPUSCULAR HEMOGLOBIN 29.1 pg (27.0-33.4); MEAN CORPUSCULAR HGB CONC 34.3 g/dL (32.0-36.0); MEAN CORPUSCULAR VOLUME 85 fl (80-97); MONOCYTES % (AUTO) 6.5 % (3-13); RED BLOOD COUNT 3.87 10^6/uL (3.72-5.28); RED CELL DISTRIBUTION WIDTH 12.9 % (11.5-14.0); SEGMENTED NEUTROPHILS % (AUTO) 57.4 % (42-78); WHITE BLOOD COUNT 8.3 10^3/uL (4.0-10.5)
[2016-11-21 00:03] LABS: PROTHROMBIN TIME 13.1 SEC (11.4-15.4)
[2016-11-21] MEDS ORDERED: HYDROCODONE/ACETAMINOPHEN 5-325 MG 6 TAB/DSPK PO PRN (00:05)
--- NOTE | 2016-11-21 00:09 | ER Document Report ---
ED General - General Chief Complaint: Other Stated Complaint: RIGHT TOE HURTING Time Seen by Provider: 11/20/16 23:41 Notes: Patient is a 56-year-old female past medical history of diabetes and a right third toe injury with associated infection currently receiving IV antibiotics through PICC line who presents with concerns about ecchymosis over her left flank. States that she first noticed this today when she was changing and looked in the mirror. Notes that she was told to come to emergency room for evaluation if she found large bruises on her as she is currently receiving heparin intermittently to flush her PICC line. She denies any pain to the area. She has not had any recent trauma to the area. She has not seen her primary care doctor regarding today's concerns. She has not noted anything symptoms improve or worsen her symptoms. TRAVEL OUTSIDE OF THE [place] IN LAST 30 DAYS: No - Related Data Allergies/Adverse Reactions: Penicillins Allergy (Unknown, Verified 11/20/16 22:26) Past Medical History - General Information source: Patient - Social History Smoking Status: Never Smoker Frequency of alcohol use: None Drug Abuse: None Lives with: Family Family History: DM, Hypertension - Past Medical History Cardiac Medical History: Reports: Hx Coronary Artery Disease, Hx Heart Attack, Hx Hypercholesterolemia, Hx Hypertension Pulmonary Medical History: Reports: Hx Asthma, Hx COPD Denies: Hx Tuberculosis Neurological Medical History: Reports: Hx Migraine. 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 Denies: Hx Hysterectomy - Immunizations Immunizations up to date: Yes Hx Diphtheria, Pertussis, Tetanus Vaccination: Yes Hx Pneumococcal Vaccination: 05/01/13 Review of Systems - Review of Systems Notes: Constitutional: Negative for fever. HENT: Negative for sore throat. Eyes: Negative for visual changes. Cardiovascular: Negative for chest pain. Respiratory: Negative for shortness of breath. Gastrointestinal: Negative for abdominal pain, vomiting or diarrhea. Genitourinary: Negative for dysuria. Musculoskeletal: Negative for back pain. Skin: Positive for left trunk ecchymosis Neurological: Negative for headaches, weakness or numbness. 10 point ROS negative except as marked above and in HPI. Physical Exam - Vital signs Vitals: Temp Pulse Resp BP Pulse Ox 98.3 F 89 16 149/91 H 99 11/20/16 22:27 11/20/16 22:27 11/20/16 22:27 11/20/16 22:27 11/20/16 22:27 Interpretation: Hypertensive Notes: PHYSICAL EXAMINATION: GENERAL: Well-appearing, well-nourished and in no acute distress. HEAD: Atraumatic, normocephalic. EYES: Pupils equal round and reactive to light, extraocular movements intact, sclera anicteric, conjunctiva are normal. ENT: nares patent, oropharynx clear without exudates. Moist mucous membranes. NECK: Normal range of motion, supple without lymphadenopathy LUNGS: Breath sounds clear to auscultation bilaterally and equal. No wheezes rales or rhonchi. HEART: Regular rate and rhythm without murmurs ABDOMEN: Soft, nontender, normoactive bowel sounds. No guarding, no rebound. No masses appreciated. EXTREMITIES: Normal range of motion, no pitting or edema. No cyanosis. There is at the plantar base of the right third toe that appears well-healing without surrounding erythema or purulent drainage NEUROLOGICAL: No focal neurological deficits. Moves all extremities spontaneously and on command. PSYCH: Normal mood, normal affect. SKIN: Warm, Dry, normal turgor, there is a 5 x 4 cm area of ecchymosis over the left flank that appears to be healing well Course - Re-evaluation Re-evalutation: 11/21/16 00:07 Patient presents with an ecchymosis over her flank on the left side that has been present for the past one week but she was concerned about the size of it so came to the emergency department for further evaluation. The pain is not painful is moderate in size. No anemia or from cytopenia and laboratories. This is consistent with her being on anticoagulation during her hospitalization. Patient is also complaining of ongoing pain into her right third toe which she states is unchanged today but is particularly severe due to her baseline neuropathy. The site itself is well in appearance and appears to be healing very well. No additional concerns or indication for further evaluation.At this time will discharge with return precautions and follow-up recommendations. Verbal discharge instructions given a the bedside and opportunity for questions given. Medication warnings reviewed. Patient is in agreement with this plan and has verbalized understanding of return precautions and the need for primary care follow-up in the next 24-72 hours. - Vital Signs Vital signs: Temp Pulse Resp BP Pulse Ox 98.3 F 89 16 149/91 H 99 11/20/16 22:27 11/20/16 22:27 11/20/16 22:27 11/20/16 22:27 11/20/16 22:27 - Laboratory Result Diagrams: 11/20/16 23:45 11/20/16 23:45 Laboratory results interpreted by me: 11/20/16 11/20/16 23:45 23:45 Hgb 11.3 L Hct 32.8 L Glucose 113 H Discharge - Discharge Clinical Impression: Diabetic foot infection Bruise, trunk Qualifiers: Encounter type: initial encounter Qualified Code(s): S20.20XA - Contusion of thorax, unspecified, initial encounter Condition: Good Disposition: HOME, SELF-CARE Additional Instructions: The bruising on your side is common when people are on anticoagulation and is likely related to your heparin injections while you were in the hospital. Please monitor the site to ensure that it is not expanding in size or becoming painful. You are being sent with a very small amount of pain medication to help control the pain in your toe. Return if you develop fever, persistent vomiting, or any other symptoms that are worrisome to you.
[2016-11-21 00:27] LABS: ANION GAP 11 (5-19); BLOOD UREA NITROGEN 19 mg/dL (7-20); CARBON DIOXIDE 25 mmol/L (22-30); CHLORIDE 106 mmol/L (98-107); CREATININE RESULT 0.64 mg/dL (0.52-1.25); GLUCOSE 113 mg/dL (75-110); POTASSIUM 4.4 mmol/L (3.6-5.0); SODIUM 142.3 mmol/L (137-145)
== END 2016-11-21 01:25 | disposition home or self-care (01) ==
LOC: ER 21:33
DX: S20.20XA Contusion of thorax, unspecified, initial encounter (principal); L08.9 Local infection of the skin and subcutaneous tissue, unspecified; M79.674 Pain in right toe(s); E11.9 Type 2 diabetes mellitus without complications; X58.XXXA Exposure to other specified factors, initial encounter
CPT/HCPCS: 36415; 80048; 85025; 85610; 99283

== ENCOUNTER 2016-12-15 19:20 | Emergency (ER) | payer MEDICAID ==
[2016-12-15] MEDS ORDERED: HYDROCODONE/ACETAMINOPHEN 5-325 MG TABLET PO ONE (20:11)
[2016-12-15] MEDS ORDERED: IPRATROPIUM/ALBUTEROL 0.5-2.5 MG/3 ML AMPUL NEB ONE (20:11)
--- NOTE | 2016-12-15 20:15 | ER Document Report ---
ED Medical Screen (RME) - General Chief Complaint: Breathing Difficulty Stated Complaint: COUGH,CONGESTION,DIFFICULTY BREATHING Time Seen by Provider: 12/15/16 20:10 Notes: 56 yo female, PMHx asthma, chronic bronchitis, former smoker, right 3rd toe osteomyelitis (receiving Vancomycin through PICC line bid and follows [facility]), DM, PAD, with increasing cough, congestion and shortness of breath for the past 4 days. She does not have albuterol at home. In addition, she is complaining of worsening toe pain after it was debrided yesterday. Does not have any more [place]. Denies fevers, sick contacts, chest pain, vomiting or difficulty walking. PE: PICC line in RUE, Decreased breath sounds bilaterally, RRR, right 3rd toe with discoloration I have greeted and performed a rapid initial assessment of this patient. A comprehensive ED assessment and evaluation of the patient, analysis of test results and completion of the medical decision making process will be conducted by additional ED providers. TRAVEL OUTSIDE OF THE [place] IN LAST 30 DAYS: No - Related Data Allergies/Adverse Reactions: Penicillins Allergy (Unknown, Verified 11/20/16 22:26) Past Medical History - Social History Chew tobacco use (# tins/day): No Frequency of alcohol use: None Drug Abuse: None - Past Medical History Cardiac Medical History: Reports: Hx Coronary Artery Disease, Hx Heart Attack, Hx Hypercholesterolemia, Hx Hypertension Pulmonary Medical History: Reports: Hx Asthma, Hx COPD Denies: Hx Tuberculosis Neurological Medical History: Reports: Hx Migraine. 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 Denies: Hx Hysterectomy - Immunizations Immunizations up to date: Yes Hx Diphtheria, Pertussis, Tetanus Vaccination: Yes Physical Exam - Vital signs Vitals: Temp Pulse Resp BP Pulse Ox 97.6 F 84 20 197/110 H 99 12/15/16 19:27 12/15/16 19:27 12/15/16 19:27 12/15/16 19:27 12/15/16 19:27 Course - Vital Signs Vital signs: Temp Pulse Resp BP Pulse Ox 97.6 F 84 20 197/110 H 99 12/15/16 19:27 12/15/16 19:27 12/15/16 19:27 12/15/16 19:27 12/15/16 19:27
[2016-12-15 20:31] LABS: ABSOLUTE EOSINOPHILS # (AUTO) 0.2 10^3/uL (0.0-0.6); ABSOLUTE LYMPHOCYTES (AUTO) 2.7 10^3/uL (0.5-4.7); ABSOLUTE MONOCYTES (AUTO) 0.4 10^3/uL (0.1-1.4); ABSOLUTE NEUT (AUTO) 4.6 10^3/uL (1.7-8.2); BASOPHILS % (AUTO) 0.4 % (0-2); EOSINOPHILS % (AUTO) 2.5 % (0-6); HEMATOCRIT 40.6 % (36.0-47.0); HEMOGLOBIN 13.8 g/dL (12.0-15.5); HGB HCT DIFFERENCE 0.8; MEAN CORPUSCULAR HEMOGLOBIN 28.9 pg (27.0-33.4); MEAN CORPUSCULAR HGB CONC 34.1 g/dL (32.0-36.0); MEAN CORPUSCULAR VOLUME 85 fl (80-97); MONOCYTES % (AUTO) 5.5 % (3-13); RED BLOOD COUNT 4.79 10^6/uL (3.72-5.28); RED CELL DISTRIBUTION WIDTH 13.6 % (11.5-14.0); SEGMENTED NEUTROPHILS % (AUTO) 57.6 % (42-78); WHITE BLOOD COUNT 8.1 10^3/uL (4.0-10.5)
[2016-12-15] MEDS ORDERED: ALBUTEROL SULFATE HFA (90 MCG/PUFF) 8 GM MDI (1 MDI/ER DISP) IH PRN (20:39)
[2016-12-15] MEDS ORDERED: PREDNISONE 20 MG TABLET PO ONE (20:39)
--- NOTE | 2016-12-15 20:39 | ER Document Report ---
ED General - General Chief Complaint: Breathing Difficulty Stated Complaint: COUGH,CONGESTION,DIFFICULTY BREATHING Time Seen by Provider: 12/15/16 20:10 Notes: Patient is a 56-year-old female with past medical history of asthma who presents with 4 days of progressively worsening shortness of breath, cough and congestion. States symptoms be getting progressively worse since onset. Nothing improves or worsens her symptoms. She does not have an inhaler at home as it is been greater than 5 years and she is actually needed one. She has not seen her primary care doctor regarding today's concerns. She denies any associated chest pain, syncope, fever, vomiting or diarrhea. No altered mental status. TRAVEL OUTSIDE OF THE [place] IN LAST 30 DAYS: No - Related Data Allergies/Adverse Reactions: Penicillins Allergy (Unknown, Verified 11/20/16 22:26) Past Medical History - General Information source: Patient - Social History Smoking Status: Never Smoker Chew tobacco use (# tins/day): No Frequency of alcohol use: None Drug Abuse: None Lives with: Family Family History: DM, Hypertension Patient has suicidal ideation: No Patient has homicidal ideation: No - Past Medical History Cardiac Medical History: Reports: Hx Coronary Artery Disease, Hx Heart Attack, Hx Hypercholesterolemia, Hx Hypertension Pulmonary Medical History: Reports: Hx Asthma, Hx COPD Denies: Hx Tuberculosis Neurological Medical History: Reports: Hx Migraine. 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 Denies: Hx Hysterectomy - Immunizations Immunizations up to date: Yes Hx Diphtheria, Pertussis, Tetanus Vaccination: Yes Hx Pneumococcal Vaccination: 05/01/13 Review of Systems - Review of Systems Notes: Constitutional: Negative for fever. HENT: Negative for sore throat. Eyes: Negative for visual changes. Cardiovascular: Negative for chest pain. Respiratory: Positive for shortness of breath. Gastrointestinal: Negative for abdominal pain, vomiting or diarrhea. Genitourinary: Negative for dysuria. Musculoskeletal: Negative for back pain. Skin: Negative for rash. Neurological: Negative for headaches, weakness or numbness. 10 point ROS negative except as marked above and in HPI. Physical Exam - Vital signs Vitals: Temp Pulse Resp BP Pulse Ox 97.6 F 84 20 197/110 H 99 12/15/16 19:27 12/15/16 19:27 12/15/16 19:27 12/15/16 19:27 12/15/16 19:27 Interpretation: Hypertensive Notes: PHYSICAL EXAMINATION: GENERAL: Well-appearing, well-nourished and in no acute distress. HEAD: Atraumatic, normocephalic. EYES: Pupils equal round and reactive to light, extraocular movements intact, sclera anicteric, conjunctiva are normal. ENT: nares patent, oropharynx clear without exudates. Moist mucous membranes. NECK: Normal range of motion, supple without lymphadenopathy LUNGS: Breath sounds clear to auscultation bilaterally and equal. Mild expiratory wheezing in all lung chavez. HEART: Regular rate and rhythm without murmurs ABDOMEN: Soft, nontender, normoactive bowel sounds. No guarding, no rebound. No masses appreciated. EXTREMITIES: Normal range of motion, no pitting or edema. No cyanosis. NEUROLOGICAL: No focal neurological deficits. Moves all extremities spontaneously and on command. PSYCH: Normal mood, normal affect. SKIN: Warm, Dry, normal turgor, no rashes or lesions noted. Course - Re-evaluation Re-evalutation: 12/15/16 20:39 Patient presents with a mild exacerbation of their baseline asthma. Mild wheezing at time of presentation but vitals do not show significant hypoxemia or tachypnea. No retractions. Patient did clinically improve after receiving nebulizers here in the emergency department. Chest x-ray without evidence of an acute pneumonia. Patient able to ambulate without any respiratory distress. Based on patient's overall reassuring assessment, I believe they are stable for outpatient management with steroids. I do not suspect an acute alternative pathology at this time based on history and exam including acute pulmonary embolus, ACS, pneumothorax, or aortic dissection. At this time will discharge with return precautions and follow-up recommendations. Verbal discharge instructions given a the bedside and opportunity for questions given. Medication warnings reviewed. Patient is in agreement with this plan and has verbalized understanding of return precautions and the need for primary care follow-up in the next 24-72 hours. - Vital Signs Vital signs: Temp Pulse Resp BP Pulse Ox 97.6 F 92 18 186/104 H 96 12/15/16 21:15 12/15/16 21:15 12/15/16 21:15 12/15/16 21:15 12/15/16 21:15 - Laboratory Result Diagrams: 12/15/16 20:15 12/15/16 20:15 Laboratory results interpreted by me: 12/15/16 20:15 Glucose 237 H Total Protein 8.3 H - Diagnostic Test Radiology reviewed: Image reviewed, Reports reviewed Radiology results interpreted by me: 12/16/16 00:08 Chest x-ray: No acute infiltrate Discharge - Discharge Clinical Impression: Asthma exacerbation Condition: Good Disposition: HOME, SELF-CARE Additional Instructions: You were seen for an asthma exacerbation. Your symptoms improved with treatment here in the emergency department. However, it is very important that you return to the emergency department immediately if you began to have worsening difficulty breathing that does not respond to your normal home nebulizers. You are also being sent home on a five-day course of steroids that you should start taking tomorrow. Please also follow closely with your primary care physician. you should also return to emergency department if you develop fever greater than 101, persistent cough, persistent vomiting, pass out, or any other symptoms that are concerning to you. Prescriptions: Prednisone [Deltasone 20 mg Tablet] 3 tab PO DAILY 5 Days
[2016-12-15 20:51] LABS: ALANINE AMINOTRANSFERASE 23 U/L (9-52); ALBUMIN 4.2 g/dL (3.5-5.0); ALKALINE PHOSPHATASE 114 U/L (38-126); ANION GAP 11 (5-19); ASPARTATE AMINO TRANSFERASE 17 U/L (14-36); BILIRUBIN,DIRECT 0.4 mg/dL (0.0-0.4); BILIRUBIN,TOTAL 0.6 mg/dL (0.2-1.3); BLOOD UREA NITROGEN 18 mg/dL (7-20); CARBON DIOXIDE 29 mmol/L (22-30); CHLORIDE 102 mmol/L (98-107); CREATINE KINASE 67 U/L (30-135); CREATININE RESULT 0.67 mg/dL (0.52-1.25); GLUCOSE 237 mg/dL (75-110); POTASSIUM 4.5 mmol/L (3.6-5.0); TOTAL PROTEIN 8.3 g/dL (6.3-8.2)
--- NOTE | 2016-12-15 21:01 | RADIOLOGY REPORT (SQ) ---
EXAM DESCRIPTION: CHEST SINGLE VIEW COMPLETED DATE/TIME: 12/15/2016 8:41 pm REASON FOR STUDY: sob COMPARISON: 01/02/2016 EXAM PARAMETERS: NUMBER OF VIEWS: One view. TECHNIQUE: Single frontal radiographic view of the chest acquired. RADIATION DOSE: NA LIMITATIONS: None. FINDINGS: LUNGS AND PLEURA: Persistent Mild interstitial thickening. New small bilateral pleural ef fusions. No consolidation, masses or pneumothorax. MEDIASTINUM AND HILAR STRUCTURES: No masses. Contour normal. HEART AND VASCULAR STRUCTURES: Heart normal in size. Normal vasculature. BONES: No acute findings. HARDWARE: New right PICC line with tip overlying the SVC at the level of the awais. OTHER: No other significant finding. IMPRESSION: Persistent Mild interstitial thickening. New small bilateral pleural effusions. New ri ght PICC line with tip overlying the SVC at the level of the awais. TECHNICAL DOCUMENTATION: JOB ID: [id number]
[2016-12-15 21:17] VITALS: BP 186/104
== END 2016-12-15 21:16 | disposition home or self-care (01) ==
LOC: ER 19:20
DX: J44.9 Chronic obstructive pulmonary disease, unspecified (principal); R06.02 Shortness of breath; R05 Cough; I25.10 Atherosclerotic heart disease of native coronary artery without angina pectoris; I25.2 Old myocardial infarction; I10 Essential (primary) hypertension; E11.9 Type 2 diabetes mellitus without complications; Z88.0 Allergy status to penicillin
CPT/HCPCS: 94640; 99285; 36415; 82550; 85025; 80053; 84484; 71010; J7512; J3490; J7620

== ENCOUNTER → 2016-12-16 | Outpatient (CLI) | payer MEDICAID ==
--- NOTE | 2016-12-16 14:59 | RADIOLOGY REPORT (SQ) ---
EXAM DESCRIPTION: CHEST PA/LATERAL COMPLETED DATE/TIME: 12/16/2016 2:34 pm REASON FOR STUDY: PRE OP COMPARISON: 12/15/2016 EXAM PARAMETERS: NUMBER OF VIEWS: two views TECHNIQUE: Digital Frontal and Lateral radiographic views of the chest acquired. RADIATION DOSE: NA LIMITATIONS: none FINDINGS: LUNGS AND PLEURA: Chronic interstitial changes are present. There is minimal blunting of the costophrenic angles. No localized infiltrate is seen. MEDIASTINUM AND HILAR STRUCTURES: No masses or contour abnormalities. HEART AND VASCULAR STRUCTURES: Heart size is borderline. There is mild pulmonary vascular prominence . BONES: No acute findings. HARDWARE: A PICC line is present on the right. The tip of the catheter is in the superior vena cava. OTHER: No other significant finding. IMPRESSION: Borderline cardiomegaly with chronic lung changes and possible minimal pleural effusions . TECHNICAL DOCUMENTATION: JOB ID: [id number] [employer]- All Rights Reserved
[2016-12-16 15:15] LABS: ABSOLUTE MONOCYTES (AUTO) 0.4 10^3/uL (0.1-1.4); ABSOLUTE NEUT (AUTO) 6.4 10^3/uL (1.7-8.2); BASOPHILS % (AUTO) 0.4 % (0-2); EOSINOPHILS % (AUTO) 0.1 % (0-6); HEMATOCRIT 36.1 % (36.0-47.0); HEMOGLOBIN 12.3 g/dL (12.0-15.5); HGB HCT DIFFERENCE 0.8; LYMPHOCYTES % (AUTO) 22.3 % (13-45); MEAN CORPUSCULAR HEMOGLOBIN 28.7 pg (27.0-33.4); MEAN CORPUSCULAR VOLUME 85 fl (80-97); MONOCYTES % (AUTO) 4.7 % (3-13); RED BLOOD COUNT 4.27 10^6/uL (3.72-5.28); RED CELL DISTRIBUTION WIDTH 13.5 % (11.5-14.0); SEGMENTED NEUTROPHILS % (AUTO) 72.5 % (42-78); WHITE BLOOD COUNT 8.8 10^3/uL (4.0-10.5)
[2016-12-16 15:43] LABS: ALANINE AMINOTRANSFERASE 24 U/L (9-52); ALBUMIN 3.6 g/dL (3.5-5.0); ALKALINE PHOSPHATASE 97 U/L (38-126); ANION GAP 12 (5-19); ASPARTATE AMINO TRANSFERASE 14 U/L (14-36); BILIRUBIN,DIRECT 0.3 mg/dL (0.0-0.4); BILIRUBIN,TOTAL 0.5 mg/dL (0.2-1.3); BLOOD UREA NITROGEN 23 mg/dL (7-20); C-REACTIVE PROTEIN 10.7 mg/L (<10.0); CALCIUM 9.6 mg/dL (8.4-10.2); CARBON DIOXIDE 25 mmol/L (22-30); CHLORIDE 100 mmol/L (98-107); POTASSIUM 5.1 mmol/L (3.6-5.0); SODIUM 136.9 mmol/L (137-145); TOTAL PROTEIN 7.1 g/dL (6.3-8.2)
[2016-12-16 15:53] LABS: GLUCOSE 424 mg/dL (75-110)
[2016-12-16 15:54] LABS: ERYTHROCYTE SEDIMENTATION RATE 74 mm/hr (0-30)
== END ==
LOC: WC 13:53
PROVIDERS: ATTEND Nurse Practitioner Family
DX: Z01.818 Encounter for other preprocedural examination (principal); L97.513 Non-pressure chronic ulcer of other part of right foot with necrosis of muscle
CPT/HCPCS: 36415; 71020; 80053; 85025; 85652; 86140

== ENCOUNTER → 2016-12-24 | Outpatient (CLI) | payer MEDICAID ==
--- NOTE | 2016-12-24 12:32 | RADIOLOGY REPORT (SQ) ---
EXAM DESCRIPTION: FOOT BILATERAL 3 VIEWS COMPLETED DATE/TIME: 12/24/2016 9:18 am REASON FOR STUDY: NON PRESSURE ULCER JESUS FEET WITH FAT LAYER EXPOSED L97.512 NON-PRS CHRONIC ULCER OTH PRT RIGHT FOOT W FAT LAYER L97.522 NON-PRS CHRONIC ULCER OTH PRT LEFT FOOT W FAT LAYER COMPARISON: None. NUMBER OF VIEWS: Three views. TECHNIQUE: AP, lateral and oblique radiographic images acquired of the right and left foot. LIMITATIONS: None. FINDINGS: MINERALIZATION: Normal. BONES: No fracture dislocation. No evidence of osteomyelitis. JOINTS: No effusions. SOFT TISSUES: No soft tissue swelling. No foreign body. OTHER: No other significant finding. IMPRESSION: There is no evidence of osteomyelitis in either foot. TECHNICAL DOCUMENTATION: JOB ID: [id number]- All Rights Reserved
== END ==
LOC: OD 08:39
PROVIDERS: ATTEND Nurse Practitioner Family
DX: L97.512 Non-pressure chronic ulcer of other part of right foot with fat layer exposed (principal); L97.522 Non-pressure chronic ulcer of other part of left foot with fat layer exposed

== ENCOUNTER 2017-03-13 20:33 | Emergency (ER) | payer MEDICAID ==
[2017-03-13] MEDS ORDERED: PREDNISONE 20 MG TABLET PO ONE (20:38)
[2017-03-13] MEDS ORDERED: IPRATROPIUM/ALBUTEROL 0.5-2.5 MG/3 ML AMPUL NEB ONE (20:38)
[2017-03-13] MEDS: ALBUTEROL SULFATE 0.083% NEB 2.5 MG/3 ML AMPUL NEB SCH (21:00)
--- NOTE | 2017-03-13 21:20 | RADIOLOGY REPORT (SQ) ---
EXAM DESCRIPTION: CHEST SINGLE VIEW COMPLETED DATE/TIME: 03/13/2017 9:09 pm REASON FOR STUDY: SOB/COUGH COMPARISON: 12/15/2016. EXAM PARAMETERS: NUMBER OF VIEWS: One view. TECHNIQUE: Single frontal radiographic view of the chest acquired. RADIATION DOSE: NA LIMITATIONS: None. FINDINGS: LUNGS AND PLEURA: Again seen are prominent interstitial markings. No lobar infiltrates, m asses or pneumothorax. Possible minimal pleural effusions. MEDIASTINUM AND HILAR STRUCTURES: No masses. Contour normal. HEART AND VASCULAR STRUCTURES: Heart normal in size. Normal vasculature. BONES: No acute findings. HARDWARE: None in the chest. OTHER: No other significant finding. IMPRESSION: INTERSTITIAL PROMINENCE WHICH MAY BE DUE TO CHRONIC SCARRING AND/OR MILD INTERSTITIAL ED LUCERO. NO SIGNIFICANT CHANGE FROM PRIOR STUDY. TECHNICAL DOCUMENTATION: JOB ID: [id number]
[2017-03-13] MEDS ORDERED: ALBUTEROL SULFATE HFA (90 MCG/PUFF) 8 GM MDI (1 MDI/ER DISP) IH PRN (22:40)
--- NOTE | 2017-03-13 22:41 | ER Document Report ---
ED General - General Chief Complaint: Breathing Difficulty Stated Complaint: DIFFICULTY BREATHING Time Seen by Provider: 03/13/17 21:35 Notes: Patient is a 56-year-old female with a past medical history of asthma who presents with 2 days of progressive worsening shortness of breath and wheezing. Patient is currently out of her home medications and states that if she had albuterol home she does not think she would have had to come to the emergency department. She has required hospitalization in the past for her asthma. She has not seen a primary care doctor regarding today's concerns. She has noted that weather changes are a trigger for her exacerbations. She denies any cough , fever or constitutional symptoms. No chest pain. TRAVEL OUTSIDE OF THE [place] IN LAST 30 DAYS: No - Related Data Allergies/Adverse Reactions: Penicillins Allergy (Unknown, Verified 03/13/17 20:36) Past Medical History - General Information source: Patient - Social History Smoking Status: Never Smoker Frequency of alcohol use: None Drug Abuse: None Lives with: Family Family History: DM, Hypertension - Past Medical History Cardiac Medical History: Reports: Hx Coronary Artery Disease, Hx Heart Attack, Hx Hypercholesterolemia, Hx Hypertension Pulmonary Medical History: Reports: Hx Asthma, Hx COPD Denies: Hx Tuberculosis Neurological Medical History: Reports: Hx Migraine. 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 Denies: Hx Hysterectomy - Immunizations Immunizations up to date: Yes Hx Diphtheria, Pertussis, Tetanus Vaccination: Yes Hx Pneumococcal Vaccination: 05/01/13 Review of Systems - Review of Systems Notes: Constitutional: Negative for fever. HENT: Negative for sore throat. Eyes: Negative for visual changes. Cardiovascular: Negative for chest pain. Respiratory: Positive for shortness of breath. Gastrointestinal: Negative for abdominal pain, vomiting or diarrhea. Genitourinary: Negative for dysuria. Musculoskeletal: Negative for back pain. Skin: Negative for rash. Neurological: Negative for headaches, weakness or numbness. 10 point ROS negative except as marked above and in HPI. Physical Exam - Vital signs Vitals: Temp Pulse Resp BP Pulse Ox 97.9 F 93 18 201/108 H 97 03/13/17 20:37 03/13/17 20:37 03/13/17 20:37 03/13/17 20:37 03/13/17 20:37 Interpretation: Hypertensive Notes: PHYSICAL EXAMINATION: GENERAL: Well-appearing, well-nourished and in no acute distress. HEAD: Atraumatic, normocephalic. EYES: Pupils equal round and reactive to light, extraocular movements intact, sclera anicteric, conjunctiva are normal. ENT: nares patent, oropharynx clear without exudates. Moist mucous membranes. NECK: Normal range of motion, supple without lymphadenopathy LUNGS: Breath sounds clear to auscultation bilaterally and equal. Scant expiratory wheezing in all lung chavez. HEART: Regular rate and rhythm without murmurs ABDOMEN: Soft, nontender, normoactive bowel sounds. No guarding, no rebound. No masses appreciated. EXTREMITIES: Normal range of motion, no pitting or edema. No cyanosis. NEUROLOGICAL: No focal neurological deficits. Moves all extremities spontaneously and on command. PSYCH: Normal mood, normal affect. SKIN: Warm, Dry, normal turgor, no rashes or lesions noted. Course - Re-evaluation Re-evalutation: 03/13/17 22:38 Patient presents with a mild exacerbation of their baseline asthma. Mild wheezing at time of presentation but vitals do not show significant hypoxemia or tachypnea. No retractions. Patient did clinically improve after receiving nebulizers here in the emergency department. Chest x-ray without evidence of an acute pneumonia. Patient able to ambulate without any respiratory distress. Based on patient's overall reassuring assessment, I believe they are stable for outpatient management with steroids. I do not suspect an acute alternative pathology at this time based on history and exam including acute pulmonary embolus, ACS, pneumothorax, or aortic dissection. At this time will discharge with return precautions and follow-up recommendations. Verbal discharge instructions given a the bedside and opportunity for questions given. Medication warnings reviewed. Patient is in agreement with this plan and has verbalized understanding of return precautions and the need for primary care follow-up in the next 24-72 hours. - Vital Signs Vital signs: Temp Pulse Resp BP Pulse Ox 97.9 F 93 17 162/104 H 93 03/13/17 20:37 03/13/17 20:39 03/13/17 23:01 03/13/17 23:01 03/13/17 23:01 - Diagnostic Test Radiology reviewed: Image reviewed, Reports reviewed Radiology results interpreted by me: 03/13/17 22:38 Chest x-ray: No acute infiltrate or pneumothorax - EKG Interpretation by Me Additional EKG results interpreted by me: 03/13/17 22:39 Normal sinus rhythm. Rate 99. No ST elevations or depressions. QTC is 468. Discharge - Discharge Clinical Impression: Asthma exacerbation Condition: Good Disposition: HOME, SELF-CARE Additional Instructions: You were seen for an asthma exacerbation. Your symptoms improved with treatment here in the emergency department. However, it is very important that you return to the emergency department immediately if you began to have worsening difficulty breathing that does not respond to your normal home nebulizers. You are also being sent home on a five-day course of steroids that you should start taking if you notice that your symptoms are not improving. Please also follow closely with your primary care physician. you should also return to emergency department if you develop fever greater than 101, persistent cough, persistent vomiting, pass out, or any other symptoms that are concerning to you. Prescriptions: Prednisone [Deltasone 20 mg Tablet] 3 tab PO DAILY 5 Days tablet
[2017-03-13 23:04] VITALS: BP 162/104
--- NOTE | 2017-03-13 23:31 | EKG REPORT ---
SEVERITY:- ABNORMAL ECG - SINUS RHYTHM INFERIOR INFARCT, AGE INDETERMINATE : Confirmed by: Connie Soto 13-Mar-2017 23:29:43
== END 2017-03-13 23:24 | disposition home or self-care (01) ==
LOC: ER 20:33
DX: J44.9 Chronic obstructive pulmonary disease, unspecified (principal); T48.6X6A Underdosing of antiasthmatics, initial encounter; Z91.128 Patient's intentional underdosing of medication regimen for other reason; Z91.14 Patient's other noncompliance with medication regimen; R06.02 Shortness of breath; I25.10 Atherosclerotic heart disease of native coronary artery without angina pectoris; I25.2 Old myocardial infarction; I10 Essential (primary) hypertension; E11.9 Type 2 diabetes mellitus without complications; Z88.0 Allergy status to penicillin; Z95.5 Presence of coronary angioplasty implant and graft
CPT/HCPCS: 93005; 94640 ×2; 99285; 71010; 93010; J7512; J3490; J7620

== ENCOUNTER 2017-03-26 19:57 | Emergency (ER) | payer MEDICAID ==
--- NOTE | 2017-03-26 20:58 | RADIOLOGY REPORT (SQ) ---
EXAM DESCRIPTION: FINGER LEFT COMPLETED DATE/TIME: 03/26/2017 8:43 pm REASON FOR STUDY: open wound COMPARISON: None. NUMBER OF VIEWS: Three views. TECHNIQUE: AP, lateral, and oblique images acquired of the left second finger. LIMITATIONS: None. FINDINGS: MINERALIZATION: Normal. BONES: No acute fracture or dislocation. No worrisome bone lesions. [place] seen adjacent to the in dex finger distal interphalangeal joint are consistent with sequela of remote trauma. SOFT TISSUES: No soft tissue swelling. No foreign body. OTHER: No other significant finding. IMPRESSION: NO RADIOGRAPHIC EVIDENCE OF ACUTE INJURY. COMMENT: SITE OF TRAUMA/COMPLAINT MARKED/STAMP COMPLETED: Yes TECHNICAL DOCUMENTATION: JOB ID: [id number] [employer]- All Rights Reserved
[2017-03-26] MEDS ORDERED: SULFAMETHOXAZOLE/TRIMETHOPRIM 800-160 MG TABLET PO ONE (21:11)
[2017-03-26] MEDS ORDERED: MUPIROCIN 2% OINTMENT 22 GM TP ONE (21:11)
[2017-03-26] MEDS ORDERED: CEPHALEXIN 500 MG CAPSULE PO ONE (21:11)
[2017-03-26] MEDS ORDERED: IBUPROFEN 800 MG TABLET PO ONE (21:16)
--- NOTE | 2017-03-26 21:19 | ER Document Report ---
ED Skin Rash/Insect Bite/Abscs - General Chief Complaint: Finger Injury Stated Complaint: HAND INJURY Time Seen by Provider: 03/26/17 21:02 Mode of Arrival: Ambulatory Notes: 57-year-old female presents to ED for pain and itching to the left index finger with cellulitis down into the hand. The finger has a open draining wound. Patient states she did not injure this finger. She is a diabetic TRAVEL OUTSIDE OF THE [place] IN LAST 30 DAYS: No - HPI Patient complains to provider of: Skin rash/lesion, Tender/swollen area Onset: Yesterday Onset/Duration: Gradual Quality of pain: Pressure, Sharp Severity: Moderate Pain Level: 4 Skin Character: Drainage, Erythema, Rash Skin Temperature: Warm Quality of rash: Itchy, Painful Identify cause: No Exacerbated by: Denies Relieved by: Denies Similar symptoms previously: No Recently seen / treated by doctor: No - Related Data Allergies/Adverse Reactions: Penicillins Allergy (Unknown, Verified 03/26/17 20:14) Past Medical History - General Information source: Patient - Social History Smoking Status: Former Smoker Cigarette use (# per day): No Chew tobacco use (# tins/day): No Smoking Education Provided: No Frequency of alcohol use: None Drug Abuse: None Lives with: Family Family History: Arthritis, CAD, COPD, CVA, DM, Hyperlipidemia, Hypertension, Malignancy, Thyroid Disfunction Patient has suicidal ideation: No Patient has homicidal ideation: No - Past Medical History Cardiac Medical History: Reports: Hx Coronary Artery Disease, Hx Heart Attack, Hx Hypercholesterolemia, Hx Hypertension Pulmonary Medical History: Reports: Hx Asthma, Hx COPD EENT Medical History: Reports: None Neurological Medical History: Reports: Hx Migraine Endocrine Medical History: Reports: 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 Renal/ Medical History: Reports: None Malignancy Medical History: Reports: None GI Medical History: Reports: Hx Gastroesophageal Reflux Disease Musculoskeltal Medical History: Reports None Skin Medical History: Reports Hx Cellulitis Psychiatric Medical History: Reports: Hx Depression Traumatic Medical History: Reports: None Infectious Medical History: Reports: None Past Surgical History: Reports: Hx Cardiac Catheterization - x7, Hx Section - x3, Hx Coronary Stent - 7 in [place]., Hx Tonsillectomy , Other - pilonidal cyst - Immunizations Immunizations up to date: Yes Hx Diphtheria, Pertussis, Tetanus Vaccination: Yes Hx Pneumococcal Vaccination: 05/01/13 Review of Systems - Review of Systems Constitutional: No symptoms reported EENT: No symptoms reported Cardiovascular: No symptoms reported Respiratory: No symptoms reported Gastrointestinal: No symptoms reported Genitourinary: No symptoms reported Female Genitourinary: No symptoms reported Musculoskeletal: No symptoms reported Skin: Change in color, Rash Hematologic/Lymphatic: No symptoms reported Neurological/Psychological: No symptoms reported Physical Exam - Vital signs Vitals: Temp Pulse Resp BP Pulse Ox 98.8 F 91 20 142/85 H 95 03/26/17 20:16 03/26/17 20:16 03/26/17 20:16 03/26/17 20:16 03/26/17 20:16 Interpretation: Normal - General General appearance: Appears well, Alert - HEENT Head: Normocephalic, Atraumatic Eyes: Normal Pupils: PERRL - Respiratory Respiratory status: No respiratory distress Chest status: Nontender Breath sounds: Normal Chest palpation: Normal - Cardiovascular Rhythm: Regular Heart sounds: Normal auscultation Murmur: No - Abdominal Inspection: Normal Distension: No distension Bowel sounds: Normal Tenderness: Nontender Organomegaly: No organomegaly - Back Back: Normal, Nontender - Extremities General upper extremity: Normal ROM General lower extremity: Normal inspection, Nontender, Normal color, Normal ROM , Normal temperature, Normal weight bearing. No: Reggie's sign Hand: Tender, No evidence of human bite, No evidence of FB, Swelling, Other - Left index finger has a rash that is now open draining with redness down into the hand. There is mild swelling to the finger. - Neurological Neuro grossly intact: Yes Cognition: Normal Orientation: AAOx4 Emmanuel Coma Scale Eye Opening: Spontaneous Emmanuel Coma Scale Verbal: Oriented Emmanuel Coma Scale Motor: Obeys Commands [place] Coma Scale Total: 15 Speech: Normal Motor strength normal: LUE, RUE, LLE, RLE Sensory: Normal - Psychological Associated symptoms: Normal affect, Normal mood - Skin Skin Temperature: Warm Skin Moisture: Dry Skin Color: Normal Character of irregularity: Erythematous Irregularity with: Swelling, Tenderness, Warmth, Inflammation, Weeping Course - Re-evaluation Re-evalutation: 03/26/17 21:20 Patient was treated with ibuprofen Bactrim and Keflex and Bactroban applied to the wound after the wound was cleaned with Shur-Clens and saline. Patient will be discharged home with prescription for Bactrim DS and Keflex. Her hand has been marked and she has been instructed to return to the ED if the swelling or redness passes a javid on her hand. - Vital Signs Vital signs: Temp Pulse Resp BP Pulse Ox 98.8 F 91 20 142/85 H 95 03/26/17 20:16 03/26/17 20:16 03/26/17 20:16 03/26/17 20:16 03/26/17 20:16 Discharge - Discharge Clinical Impression: Cellulitis to left index finger and hand Condition: Stable Disposition: HOME, SELF-CARE Instructions: Family Physicians / Practices Additional Instructions: CELLULITIS: You have an infection of your skin and underlying soft tissues called cellulitis. This is due to bacteria, which can enter through any break in the skin, or even through an irritated hair follicle. Untreated, cellulitis will usually worsen. Antibiotics are required. Usually, warm packs or warm soaks, and elevation of the infected area are recommended. You should start getting better within 24 to 36 hours. Most infections respond quickly to the right medication. Follow-up care is important, however, to check for abscess (boil) formation, unsuspected foreign body, or resistant infection. If you develop fever, chills, or if the area of infection is becoming rapidly more swollen or painful, call the doctor at once. ANTIBIOTIC THERAPY: You have been given an antibiotic prescription. It's important that you take all the medication, unless instructed otherwise by your physician. Failure to complete the entire course can result in relapse of your condition. Common side effects of antibiotics include nausea, intestinal cramping, or diarrhea. Women may develop vaginal yeast infections, and babies can get yeast (thrush) in the mouth following the use of antibiotics. Contact your physician if you develop significant side effects from this medication. Allergy to this antibiotic can result in hives, wheezing, faintness, or itching. If symptoms of allergy occur, stop the medication and call the doctor. Bactroban Ointment Bactroban is very effective against the germs that cause infection within the skin. It's useful for impetigo and other superficial infections. Deeper infections require antibiotics by mouth or by shot. Apply the medicine three times a day for one week, or longer if your doctor has advised it. Stop the medicine and call your doctor if you develop large blisters, severe itching, increasing pain, swelling, fever, or spreading redness. TRIMETHOPRIM-SULFA: You have been given a prescription for trimethoprim-sulfa (TMS, Septra, Bactrim). This is a combination antibiotic of the sulfa class, often used for urinary tract infections, middle ear infections, bronchitis, shigella intestinal infection, and Pneumocystis pneumonia. TMS is usually well-tolerated. Occasional side effects include nausea and decreased appetite. Septra is not recommended for infants less than two months of age. Do not take this medication if you have experienced severe side effects or allergy to sulfa medicine. You should stop this medicine at once and contact your physician if you develop any rash, joint pain, shortness of breath, bruising, or jaundice ( yellow color in the skin), or if you develop any other new or unusual symptoms. Cephalexin The antibiotic you've been prescribed is a member of the cephalosporin class. This type of antibiotic covers a wide variety of infections, including those of the skin, lungs, and urinary tract. It's useful for staph infections. This antibiotic is slightly similar to the penicillin family. In rare cases , a person who is allergic to penicillin will also be allergic to this medication. If you have had a severe allergic reaction to penicillin, and have not taken this antibiotic since that time, notify your doctor. Antibiotics which cover many germs ("broad spectrum" antibiotics) are more likely to cause diarrhea or "yeast" infections. Women prone to vaginal yeast problems may suffer an attack after taking this antibiotic. In infants, oral thrush (white spots "stuck" on the cheek) or yeast diaper rash may result. See your doctor if these problems occur. Call at once if you develop itching, hives , shortness of breath, or lightheadedness. Epsom Salt Soaks Soak the wound area in a container of warm epsom salt water. If you can't get the wound area into a bucket or merchant, use a folded towel soaked in the epsom salt solution and apply to the area. Use clean hot tap water (about the temperature of a very warm bath), mixing in about one (1) teaspoon for every pint of water. Two gallon --> 16 teaspoons Epsom Salts One gallon --> 8 teaspoons Epsom Salts Two quarts --> 4 teaspoons Epsom Salts One quart --> 2 teaspoons Epsom Salts Soak the wound for about 20 minutes while gently moving it around in the water. Repeat this four (4) times a day. FOLLOW-UP CARE: If you have been referred to a physician for follow-up care, call the physician s office for an appointment as you were instructed or within the next two days. If you experience worsening or a significant change in your symptoms, notify the physician immediately or return to the Emergency Department at any time for re-evaluation. Prescriptions: Cephalexin Monohydrate [Keflex 500 mg Capsule] 500 mg PO Q6H 5 Days capsule Sulfamethoxazole/Trimethoprim [Septra-Ds 800-160 mg Tablet] 1 tab PO BID #20 tablet Forms: Elevated Blood Pressure
[2017-03-26 21:43] VITALS: BP 162/96
== END 2017-03-26 21:32 | disposition home or self-care (01) ==
LOC: ER 19:57
DX: L03.012 Cellulitis of left finger (principal); L03.114 Cellulitis of left upper limb; I25.10 Atherosclerotic heart disease of native coronary artery without angina pectoris; E78.00 Pure hypercholesterolemia, unspecified; I10 Essential (primary) hypertension; J45.909 Unspecified asthma, uncomplicated; J44.9 Chronic obstructive pulmonary disease, unspecified; E11.9 Type 2 diabetes mellitus without complications; I25.2 Old myocardial infarction; Z87.891 Personal history of nicotine dependence; Z79.4 Long term (current) use of insulin; Z88.0 Allergy status to penicillin
CPT/HCPCS: 99284; 82962; 73140; J3490 ×3

== ENCOUNTER 2017-06-15 17:29 | Emergency (ER) | payer MEDICAID ==
--- NOTE | 2017-06-15 18:14 | ER Document Report ---
ED Medical Screen (RME) - General Chief Complaint: Breathing Difficulty Stated Complaint: SHORTNESS OF BREATH Time Seen by Provider: 06/15/17 18:03 Notes: This 57-year-old female patient with past medical history of asthma, diabetes on insulin, coronary artery disease and peripheral artery disease. She reports asthma attack all day long worse in the past 1 hour. She does not have any inhalers or bronchodilators at home to use. She did not get a flu shot this year. Brief exam shows mostly bronchitic type cough without much of any wheezes. I have greeted and performed a rapid initial assessment of this patient. A comprehensive ED assessment and evaluation of the patient, analysis of test results and completion of the medical decision making process will be conducted by additional ED providers. TRAVEL OUTSIDE OF THE [place] IN LAST 30 DAYS: No - Related Data Allergies/Adverse Reactions: Penicillins Allergy (Unknown, Verified 03/26/17 20:14) Past Medical History - Social History Chew tobacco use (# tins/day): No Frequency of alcohol use: None Drug Abuse: None - Past Medical History Cardiac Medical History: Reports: Hx Coronary Artery Disease, Hx Heart Attack, Hx Hypercholesterolemia, Hx Hypertension Pulmonary Medical History: Reports: Hx Asthma, Hx COPD Denies: Hx Tuberculosis Neurological Medical History: Reports: Hx Migraine. 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 Denies: Hx Hysterectomy - Immunizations Immunizations up to date: Yes Hx Diphtheria, Pertussis, Tetanus Vaccination: Yes Physical Exam - Vital signs Vitals: Temp Pulse Resp BP Pulse Ox 98.0 F 82 16 180/95 H 98 06/15/17 17:48 06/15/17 17:48 06/15/17 17:48 06/15/17 17:48 06/15/17 17:48 Course - Vital Signs Vital signs: Temp Pulse Resp BP Pulse Ox 98.0 F 82 16 180/95 H 98 06/15/17 17:48 06/15/17 17:48 06/15/17 17:48 06/15/17 17:48 06/15/17 17:48
[2017-06-15 18:35] LABS: ABSOLUTE BASOPHILS # (AUTO) 0.1 10^3/uL (0.0-0.2); ABSOLUTE EOSINOPHILS # (AUTO) 0.1 10^3/uL (0.0-0.6); ABSOLUTE MONOCYTES (AUTO) 0.4 10^3/uL (0.1-1.4); BASOPHILS % (AUTO) 0.8 % (0-2); EOSINOPHILS % (AUTO) 1.9 % (0-6); HEMATOCRIT 38.3 % (36.0-47.0); HGB HCT DIFFERENCE 0.7; LYMPHOCYTES % (AUTO) 26.1 % (13-45); MEAN CORPUSCULAR HEMOGLOBIN 28.3 pg (27.0-33.4); MEAN CORPUSCULAR VOLUME 84 fl (80-97); MONOCYTES % (AUTO) 5.8 % (3-13); RED BLOOD COUNT 4.59 10^6/uL (3.72-5.28); RED CELL DISTRIBUTION WIDTH 13.7 % (11.5-14.0); SEGMENTED NEUTROPHILS % (AUTO) 65.4 % (42-78); WHITE BLOOD COUNT 7.6 10^3/uL (4.0-10.5)
[2017-06-15 18:53] LABS: ALANINE AMINOTRANSFERASE 21 U/L (9-52); ALBUMIN 3.2 g/dL (3.5-5.0); ALKALINE PHOSPHATASE 84 U/L (38-126); ANION GAP 7 (5-19); ASPARTATE AMINO TRANSFERASE 13 U/L (14-36); BILIRUBIN,DIRECT 0.2 mg/dL (0.0-0.4); BILIRUBIN,TOTAL 0.3 mg/dL (0.2-1.3); BLOOD UREA NITROGEN 25 mg/dL (7-20); CALCIUM 9.2 mg/dL (8.4-10.2); CARBON DIOXIDE 31 mmol/L (22-30); CHLORIDE 102 mmol/L (98-107); CREATININE RESULT 0.93 mg/dL (0.52-1.25); GLUCOSE 177 mg/dL (75-110); POTASSIUM 5.2 mmol/L (3.6-5.0); TOTAL PROTEIN 6.3 g/dL (6.3-8.2)
--- NOTE | 2017-06-15 18:53 | RADIOLOGY REPORT (SQ) ---
EXAM DESCRIPTION: CHEST PA/LAT COMPLETED DATE/TIME: 06/15/2017 6:36 pm REASON FOR STUDY: Coughing from asthma exacerbation all day long. COMPARISON: 03/13/2017 EXAM PARAMETERS: NUMBER OF VIEWS: two views TECHNIQUE: Digital Frontal and Lateral radiographic views of the chest acquired. RADIATION DOSE: NA LIMITATIONS: none FINDINGS: LUNGS AND PLEURA: Mild chronic interstitial changes. No acute infiltrate or effusion. MEDIASTINUM AND HILAR STRUCTURES: No masses or contour abnormalities. HEART AND VASCULAR STRUCTURES: Heart normal size. No evidence for failure. BONES: No acute findings. HARDWARE: None in the chest. OTHER: No other significant finding. IMPRESSION: Chronic interstitial changes with no acute cardiopulmonary disease. TECHNICAL DOCUMENTATION: JOB ID: [id number] [employer]- All Rights Reserved
[2017-06-15 19:07] LABS: APPEARANCE,URINE SLIGHTLY-CLOUDY; BILIRUBIN,URINE NEGATIVE (NEGATIVE); GLUCOSE, URINE 150 mg/dL (NEGATIVE); KETONES,URINE NEGATIVE (NEGATIVE); LEUKOCYTE ESTERASE,URINE SMALL (NEGATIVE); NITRITE,URINE NEGATIVE (NEGATIVE); PROTEIN,URINE >=500 mg/dL (NEGATIVE); URINE SPECIFIC GRAVITY 1.012; UROBILINOGEN,URINE NEGATIVE mg/dL (<2.0)
[2017-06-15] MEDS ORDERED: IPRATROPIUM/ALBUTEROL 0.5-2.5 MG/3 ML AMPUL NEB ONE (19:10)
[2017-06-15] MEDS ORDERED: ALBUTEROL SULFATE HFA (90 MCG/PUFF) 8 GM MDI (1 MDI/ER DISP) IH PRN (19:50)
[2017-06-15] MEDS ORDERED: DEXAMETHASONE 4 MG TABLET PO ONE (19:50)
--- NOTE | 2017-06-15 19:51 | ER Document Report ---
ED General - General Chief Complaint: Breathing Difficulty Stated Complaint: SHORTNESS OF BREATH Time Seen by Provider: 06/15/17 18:03 Notes: Patient is a 57-year-old female with a history of asthma who presents with shortness of breath. Patient reports that she is out of her albuterol and has had several days of progressively worsening shortness of breath. She notes exertion and exposure to cold air worsens her symptoms. She does not have anything available to her to improve her symptoms. She does not have a primary care doctor with whom she can follow-up. She denies any cough, sputum production, chest pain, fever or constitutional symptoms. She reports she has had similar symptoms in the past and she has run out of her albuterol inhalers. She has never required intubation for her asthma but has been hospitalized in the past. TRAVEL OUTSIDE OF THE [place] IN LAST 30 DAYS: No - Related Data Allergies/Adverse Reactions: Penicillins Allergy (Unknown, Verified 03/26/17 20:14) Past Medical History - General Information source: Patient - Social History Smoking Status: Never Smoker Chew tobacco use (# tins/day): No Frequency of alcohol use: None Drug Abuse: None Lives with: Spouse/Significant other Family History: Arthritis, CAD, COPD, CVA, DM, Hyperlipidemia, Hypertension, Malignancy, Thyroid Disfunction Patient has suicidal ideation: No Patient has homicidal ideation: No - Past Medical History Cardiac Medical History: Reports: Hx Coronary Artery Disease, Hx Heart Attack, Hx Hypercholesterolemia, Hx Hypertension Pulmonary Medical History: Reports: Hx Asthma, Hx COPD Denies: Hx Tuberculosis Neurological Medical History: Reports: Hx Migraine. Denies: Hx Seizures Endocrine Medical History: Reports: Hx Diabetes Mellitus Type 1, 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 Renal/ Medical History: Denies: Hx Peritoneal Dialysis GI Medical History: Reports: Hx Gastroesophageal Reflux Disease Skin Medical History: Reports Hx Cellulitis Psychiatric Medical History: Reports: Hx Depression Past Surgical History: Reports: Hx Cardiac Catheterization - x7, Hx Section - x3, Hx Coronary Stent - 7 in [place]., Hx Tonsillectomy , Other - pilonidal cyst. Denies: Hx Hysterectomy - Immunizations Immunizations up to date: Yes Hx Diphtheria, Pertussis, Tetanus Vaccination: Yes Hx Pneumococcal Vaccination: 05/01/13 Review of Systems - Review of Systems Notes: Constitutional: Negative for fever. HENT: Negative for sore throat. Eyes: Negative for visual changes. Cardiovascular: Negative for chest pain. Respiratory: Positive for shortness of breath. Gastrointestinal: Negative for abdominal pain, vomiting or diarrhea. Genitourinary: Negative for dysuria. Musculoskeletal: Negative for back pain. Skin: Negative for rash. Neurological: Negative for headaches, weakness or numbness. 10 point ROS negative except as marked above and in HPI. Physical Exam - Vital signs Vitals: Temp Pulse Resp BP Pulse Ox 98.0 F 82 16 180/95 H 98 06/15/17 17:48 06/15/17 17:48 06/15/17 17:48 06/15/17 17:48 06/15/17 17:48 Interpretation: Hypertensive Notes: PHYSICAL EXAMINATION: GENERAL: Well-appearing, well-nourished and in no acute distress. HEAD: Atraumatic, normocephalic. EYES: Pupils equal round and reactive to light, extraocular movements intact, sclera anicteric, conjunctiva are normal. ENT: nares patent, oropharynx clear without exudates. Moist mucous membranes. NECK: Normal range of motion, supple without lymphadenopathy LUNGS: Breath sounds clear to auscultation bilaterally and equal. Faint expiratory wheezing in all lung chavez. HEART: Regular rate and rhythm without murmurs ABDOMEN: Soft, nontender, normoactive bowel sounds. No guarding, no rebound. No masses appreciated. EXTREMITIES: Normal range of motion, no pitting or edema. No cyanosis. NEUROLOGICAL: No focal neurological deficits. Moves all extremities spontaneously and on command. PSYCH: Normal mood, normal affect. SKIN: Warm, Dry, normal turgor, no rashes or lesions noted. Course - Re-evaluation Re-evalutation: 06/15/17 19:47 Patient presents with a mild exacerbation of their baseline asthma. Mild wheezing at time of presentation but vitals do not show significant hypoxemia or tachypnea. No retractions. Patient did clinically improve after receiving nebulizers here in the emergency department. Chest x-ray without evidence of an acute pneumonia. Patient able to ambulate without any respiratory distress. Based on patient's overall reassuring assessment, I believe they are stable for outpatient management with dexamethasone here in the ED. I do not suspect an acute alternative pathology at this time based on history and exam including acute pulmonary embolus, ACS, pneumothorax, or aortic dissection. At this time will discharge with return precautions and follow-up recommendations. Verbal discharge instructions given a the bedside and opportunity for questions given. Medication warnings reviewed. Patient is in agreement with this plan and has verbalized understanding of return precautions and the need for primary care follow-up in the next 24-72 hours. - Vital Signs Vital signs: Temp Pulse Resp BP Pulse Ox 98.9 F 89 16 162/95 H 97 06/15/17 20:23 06/15/17 20:23 06/15/17 20:23 06/15/17 20:23 06/15/17 20:23 - Laboratory Result Diagrams: 06/15/17 18:25 06/15/17 18:25 Laboratory results interpreted by me: 06/15/17 06/15/17 18:25 18:25 Potassium 5.2 H Carbon Dioxide 31 H BUN 25 H Glucose 177 H AST 13 L Albumin 3.2 L Urine Protein >=500 H Urine Glucose (UA) 150 H Urine Blood SMALL H Ur Leukocyte Esterase SMALL H Discharge - Discharge Clinical Impression: Asthma exacerbation Qualifiers: Asthma severity: moderate Asthma persistence: persistent Qualified Code(s): J45.41 - Moderate persistent asthma with (acute) exacerbation Condition: Good Disposition: HOME, SELF-CARE Additional Instructions: You were seen for an asthma exacerbation. Your symptoms improved with treatment here in the emergency department. However, it is very important that you return to the emergency department immediately if you began to have worsening difficulty breathing that does not respond to your normal home nebulizers. You are also being sent home on a five-day course of steroids that you should start taking tomorrow. Please also follow closely with your primary care physician. you should also return to emergency department if you develop fever greater than 101, persistent cough, persistent vomiting, pass out, or any other symptoms that are concerning to you. Prescriptions: Albuterol Sulfate [Proair HFA Inhalation Aerosol 8.5 gm MDI] 2 puff IH Q4H PRN # 1 mdi PRN Reason:
[2017-06-15 20:26] VITALS: BP 162/95
== END 2017-06-15 20:23 | disposition home or self-care (01) ==
LOC: ER 17:29
DX: J45.41 Moderate persistent asthma with (acute) exacerbation (principal); T48.6X6A Underdosing of antiasthmatics, initial encounter; Z91.128 Patient's intentional underdosing of medication regimen for other reason; Z91.14 Patient's other noncompliance with medication regimen; J44.9 Chronic obstructive pulmonary disease, unspecified; I25.10 Atherosclerotic heart disease of native coronary artery without angina pectoris; I25.2 Old myocardial infarction; I10 Essential (primary) hypertension; E11.9 Type 2 diabetes mellitus without complications; Z95.5 Presence of coronary angioplasty implant and graft; Z88.0 Allergy status to penicillin; Z82.5 Family history of asthma and other chronic lower respiratory diseases
CPT/HCPCS: 94640; 99285; 36415; 83735; 85025; 80053; 81001; 71020; J3490 ×2; J7620